=== PATIENT | male | born 1945 | race Caucasian/White ===

== ENCOUNTER 2018-07-11 21:36 | Inpatient (IN) | payer MEDICARE ==
--- NOTE | 2018-07-11 22:46 | ER Document Report ---
ED Fall - General Chief Complaint: Fall Stated Complaint: ALTERED MENTAL STATUS Time Seen by Provider: 07/11/18 22:17 Notes: 73-year-old male to the emergency department for evaluation of altered mental status. Patient reportedly had a fall at a assisted living facility. Seem to be more confused. Patient denies any pain right now. Patient states that before the fall he was a little dizzy but now he has no symptoms. Reportedly had a fever at the nursing facility as well. EMS states had a fever as well. Patient denies any abdominal pain. Denies any cough or shortness of breath. Has any headache, neck stiffness or other issues at this time. TRAVEL OUTSIDE OF THE [place] IN LAST 30 DAYS: No - HPI Occurred: Just prior to arrival Where: [facility] Context: Lost balance Associated symptoms: Became dizzy/fainted - Became dizzy but did not faint. denies: Lost consciousness, Seizure, Difficulty breathing Severity: Mild Pain Level: Denies - Related data Allergies/Adverse Reactions: No Known Drug Allergies Allergy (Verified 07/11/18 21:46) Past Medical History - General Information source: Patient - Social History Smoking Status: Unknown if Ever Smoked Frequency of alcohol use: None Drug Abuse: None Lives with: [facility] Family History: Reviewed & Not Pertinent - Past Medical History Cardiac Medical History: Reports: Hx Atrial Fibrillation, Hx Hypertension Review of Systems - Review of Systems Constitutional: Fever, Weakness. denies: Malaise EENT: denies: Eye pain, Difficulty swallowing, Throat swelling Cardiovascular: Dizziness, Lightheaded. denies: Chest pain, Palpitations, Heart racing Respiratory: denies: Cough, Short of breath, Wheezing Gastrointestinal: denies: Abdominal pain, Diarrhea, Nausea, Vomiting Genitourinary: denies: Burning, Dysuria, Discharge Musculoskeletal: denies: Back pain, Muscle pain, Leg swelling Skin: denies: Change in hair/nails, Dryness, Lesions, Lumps, Rash Hematologic/Lymphatic: denies: Anemia, Blood clots, Easy bleeding, Easy bruising Neurological/Psychological: Weakness. denies: Confusion, Dementia, Sensory change, Seizure, Lost consciousness, Headaches Physical Exam - Vital signs Vitals: Temp Pulse Resp BP Pulse Ox 99.9 F 101 H 22 H 150/112 H 98 07/11/18 21:46 07/11/18 21:46 07/11/18 21:46 07/11/18 21:46 07/11/18 21:46 Interpretation: Normal - General General appearance: Appears well, Alert - HEENT Head: Normocephalic, Atraumatic Eyes: Normal Pupils: PERRL - Respiratory Respiratory status: No respiratory distress Chest status: Nontender Breath sounds: Normal Chest palpation: Normal - Cardiovascular Rhythm: Regular Heart sounds: Normal auscultation Murmur: No - Abdominal Inspection: Normal Distension: No distension Bowel sounds: Normal Tenderness: Nontender Organomegaly: No organomegaly - Back Back: Normal, Nontender - Extremities General upper extremity: Normal inspection, Nontender, Normal color, Normal ROM, Normal temperature General lower extremity: Normal inspection, Nontender, Normal color, Normal ROM, Normal temperature, Normal weight bearing, Other - A little unsteady on his feet. 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 No: Pronator drift, Weakness, Hemiplegia Sensory: Normal - Psychological Associated symptoms: Normal affect, Normal mood - Skin Skin Temperature: Warm Skin Moisture: Dry Skin Color: Normal Course - Re-evaluation Re-evalutation: 07/11/18 23:39 Laboratory 07/11/18 07/11/18 07/11/18 23:00 23:00 23:00 PT 14.8 INR 1.10 APTT 34.3 VBG pH 7.46 H VBG pCO2 47.4 VBG HCO3 32.8 H VBG Base Excess 7.6 Urine Color YELLOW Urine Appearance CLOUDY Urine pH 5.0 Ur Specific [place] 1.019 Urine Protein 100 H Urine Glucose (UA) NEGATIVE Urine Ketones NEGATIVE Urine Blood LARGE H Urine Nitrite NEGATIVE Urine Bilirubin SMALL H Urine Urobilinogen 2.0 H Ur Leukocyte Esterase LARGE H Urine WBC (Auto) >182 Urine RBC (Auto) >182 Urine Bacteria (Auto) 1+ Urine WBC Clumps FEW Squamous Epi Cells Auto 3 U Non-Squamous Epis Auto 6 Urine Mucus (Auto) RARE Urine Ascorbic Acid NEGATIVE 07/12/18 02:58 Laboratory 07/11/18 07/11/18 07/11/18 23:00 23:00 23:00 WBC 22.6 H RBC 5.35 Hgb 15.5 Hct 46.0 MCV 86 MCH 29.0 MCHC 33.7 RDW 15.2 H Plt Count 291 Total Counted 100 Seg Neutrophils % Not Reportable Seg Neuts % (Manual) 87 H Band Neutrophils % 1 L Lymphocytes % Not Reportable Lymphocytes % (Manual) 6 L Monocytes % Not Reportable Monocytes % (Manual) 6 Eosinophils % Not Reportable Eosinophils % (Manual) 0 Basophils % Not Reportable Basophils % (Manual) 0 Absolute Neutrophils Not Reportable Abs Neuts (Manual) 19.9 H Absolute Lymphocytes Not Reportable Abs Lymphs (Manual) 1.4 Absolute Monocytes Not Reportable Abs Monocytes (Manual) 1.4 Absolute Eosinophils Not Reportable Absolute Eos (Manual) 0.0 Absolute Basophils Not Reportable Abs Basophils (Manual) 0.0 Platelet Comment ADEQUATE Polychromasia SLIGHT PT 14.8 INR 1.10 APTT 34.3 VBG pH VBG pCO2 VBG HCO3 VBG Base Excess Sodium 137.3 Potassium 2.9 L* Chloride 93 L Carbon Dioxide 32 H Anion Gap 12 BUN 19 Creatinine 1.54 H Est GFR ( Amer) 54 L Est GFR (Non-Af Amer) 45 L Glucose 120 H Lactic Acid Calcium 9.1 Total Bilirubin 1.3 Direct Bilirubin 0.4 Neonat Total Bilirubin Not Reportable Neonat Direct Bilirubin Not Reportable Neonat Indirect Bili Not Reportable AST 28 ALT 11 L Alkaline Phosphatase 103 Troponin I Total Protein 7.0 Albumin 4.3 Urine Color Urine Appearance Urine pH Ur Specific [place] Urine Protein Urine Glucose (UA) Urine Ketones Urine Blood Urine Nitrite Urine Bilirubin Urine Urobilinogen Ur Leukocyte Esterase Urine WBC (Auto) Urine RBC (Auto) Urine Bacteria (Auto) Urine WBC Clumps Squamous Epi Cells Auto U Non-Squamous Epis Auto Urine Mucus (Auto) Urine Ascorbic Acid 07/11/18 07/11/18 07/11/18 23:00 23:00 23:00 WBC RBC Hgb Hct MCV MCH MCHC RDW Plt Count Total Counted Seg Neutrophils % Seg Neuts % (Manual) Band Neutrophils % Lymphocytes % Lymphocytes % (Manual) Monocytes % Monocytes % (Manual) Eosinophils % Eosinophils % (Manual) Basophils % Basophils % (Manual) Absolute Neutrophils Abs Neuts (Manual) Absolute Lymphocytes Abs Lymphs (Manual) Absolute Monocytes Abs Monocytes (Manual) Absolute Eosinophils Absolute Eos (Manual) Absolute Basophils Abs Basophils (Manual) Platelet Comment Polychromasia PT INR APTT VBG pH 7.46 H VBG pCO2 47.4 VBG HCO3 32.8 H VBG Base Excess 7.6 Sodium Potassium Chloride Carbon Dioxide Anion Gap BUN Creatinine Est GFR ( Amer) Est GFR (Non-Af Amer) Glucose Lactic Acid Calcium Total Bilirubin Direct Bilirubin Neonat Total Bilirubin Neonat Direct Bilirubin Neonat Indirect Bili AST ALT Alkaline Phosphatase Troponin I 0.052 Total Protein Albumin Urine Color YELLOW Urine Appearance CLOUDY Urine pH 5.0 Ur Specific [place] 1.019 Urine Protein 100 H Urine Glucose (UA) NEGATIVE Urine Ketones NEGATIVE Urine Blood LARGE H Urine Nitrite NEGATIVE Urine Bilirubin SMALL H Urine Urobilinogen 2.0 H Ur Leukocyte Esterase LARGE H Urine WBC (Auto) >182 Urine RBC (Auto) >182 Urine Bacteria (Auto) 1+ Urine WBC Clumps FEW Squamous Epi Cells Auto 3 U Non-Squamous Epis Auto 6 Urine Mucus (Auto) RARE Urine Ascorbic Acid NEGATIVE 07/11/18 23:40 WBC RBC Hgb Hct MCV MCH MCHC RDW Plt Count Total Counted Seg Neutrophils % Seg Neuts % (Manual) Band Neutrophils % Lymphocytes % Lymphocytes % (Manual) Monocytes % Monocytes % (Manual) Eosinophils % Eosinophils % (Manual) Basophils % Basophils % (Manual) Absolute Neutrophils Abs Neuts (Manual) Absolute Lymphocytes Abs Lymphs (Manual) Absolute Monocytes Abs Monocytes (Manual) Absolute Eosinophils Absolute Eos (Manual) Absolute Basophils Abs Basophils (Manual) Platelet Comment Polychromasia PT INR APTT VBG pH VBG pCO2 VBG HCO3 VBG Base Excess Sodium Potassium Chloride Carbon Dioxide Anion Gap BUN Creatinine Est GFR ( Amer) Est GFR (Non-Af Amer) Glucose Lactic Acid 1.3 Calcium Total Bilirubin Direct Bilirubin Neonat Total Bilirubin Neonat Direct Bilirubin Neonat Indirect Bili AST ALT Alkaline Phosphatase Troponin I Total Protein Albumin Urine Color Urine Appearance Urine pH Ur Specific [place] Urine Protein Urine Glucose (UA) Urine Ketones Urine Blood Urine Nitrite Urine Bilirubin Urine Urobilinogen Ur Leukocyte Esterase Urine WBC (Auto) Urine RBC (Auto) Urine Bacteria (Auto) Urine WBC Clumps Squamous Epi Cells Auto U Non-Squamous Epis Auto Urine Mucus (Auto) Urine Ascorbic Acid Chest X-Ray 07/11/18 22:09 IMPRESSION: No evidence of acute cardiopulmonary disease. Abdomen/Pelvis CT 07/12/18 00:13 IMPRESSION: No acute findings. Cholelithiasis. Nonobstructing left-sided nephrolithiasis. TECHNICAL DOCUMENTATION: Quality ID # 436: Final reports with documentation of one or more dose reduction techniques (e.g., Automated exposure control, adjustment of the mA and/or kV according to patient size, use of iterative reconstruction technique) copyright 2011 [employer]- All Rights Reserved There is no evidence of obstructing kidney stones. Patient has a nonobstructing left stone in the kidney. But no hydroureter or hydronephrosis. Patient has received antibiotics. Does have a significantly elevated WBC count. We will try to get some more information from the nursing facility about his other underlying conditions. At this time will admit to the hospital to the [facility]. Consulted the hospitalist, Dr. Singh, he will admit at this time. - Vital Signs Vital signs: Temp Pulse Resp BP Pulse Ox 99.9 F 101 H 20 127/84 H 90 L 07/11/18 21:46 07/11/18 21:46 07/12/18 01:01 07/12/18 01:01 07/12/18 01:01 - Laboratory Result Diagrams: 07/11/18 23:00 07/11/18 23:00 Laboratory results interpreted by me: 07/11/18 07/11/18 07/11/18 23:00 23:00 23:00 WBC 22.6 H RDW 15.2 H Seg Neuts % (Manual) 87 H Band Neutrophils % 1 L Lymphocytes % (Manual) 6 L Abs Neuts (Manual) 19.9 H VBG pH 7.46 H VBG HCO3 32.8 H Potassium 2.9 L* Chloride 93 L Carbon Dioxide 32 H Creatinine 1.54 H Est GFR ( Amer) 54 L Est GFR (Non-Af Amer) 45 L Glucose 120 H ALT 11 L Urine Protein Urine Blood Urine Bilirubin Urine Urobilinogen Ur Leukocyte Esterase 07/11/18 23:00 WBC RDW Seg Neuts % (Manual) Band Neutrophils % Lymphocytes % (Manual) Abs Neuts (Manual) VBG pH VBG HCO3 Potassium Chloride Carbon Dioxide Creatinine Est GFR ( Amer) Est GFR (Non-Af Amer) Glucose ALT Urine Protein 100 H Urine Blood LARGE H Urine Bilirubin SMALL H Urine Urobilinogen 2.0 H Ur Leukocyte Esterase LARGE H - EKG Interpretation by Me EKG shows normal: abnormal: Intervals, QRS Complexes, ST-T Waves Rhythm: A.Fib Discharge - Discharge Clinical Impression: SIRS (systemic inflammatory response syndrome) Urinary tract infection Qualifiers: Urinary tract infection type: site unspecified Hematuria presence: without hematuria Qualified Code(s): N39.0 - Urinary tract infection, site not specified Leukocytosis Qualifiers: Leukocytosis type: unspecified Qualified Code(s): D72.829 - Elevated white blood cell count, unspecified Condition: Good Disposition: ADMITTED INPATIENT Admitting Provider: Hospitalist - Dr. Singh Unit Admitted: [facility]
--- NOTE | 2018-07-11 22:56 | RADIOLOGY REPORT (SQ) ---
XR CHEST 1 VIEW HISTORY: Fever. COMPARISON: None. FINDINGS: The heart size is normal. The lungs are clear. No pleural effusions or pneumothorax is seen. No acute bony findings. IMPRESSION: No evidence of acute cardiopulmonary disease.
[2018-07-11 23:20] LABS: VENOUS BLOOD BASE EXCESS 7.6 mmol/L; VENOUS BLOOD HCO3 32.8 mmol/L (20-32); VENOUS BLOOD PCO2 47.4 mmHg (35-63); VENOUS BLOOD PH 7.46 (7.30-7.42)
[2018-07-11 23:23] LABS: HEMOGLOBIN 15.5 g/dL (13.5-17.0); MEAN CORPUSCULAR HGB CONC 33.7 g/dL (32.0-36.0); MEAN CORPUSCULAR VOLUME 86 fl (80-97); PLATELET COUNT 291 10^3/uL (150-450); RED BLOOD COUNT 5.35 10^6/uL (4.35-5.55); RED CELL DISTRIBUTION WIDTH 15.2 % (11.5-14.0); WHITE BLOOD COUNT 22.6 10^3/uL (4.0-10.5)
[2018-07-11 23:32] LABS: PROTHROMBIN TIME 14.8 SEC (11.4-15.4)
[2018-07-11 23:33] LABS: PARTIAL THROMBOPLASTIN TIME 34.3 SEC (23.5-35.8)
[2018-07-11 23:35] LABS: APPEARANCE,URINE CLOUDY; BILIRUBIN,URINE SMALL (NEGATIVE); GLUCOSE, URINE NEGATIVE (NEGATIVE); KETONES,URINE NEGATIVE (NEGATIVE); LEUKOCYTE ESTERASE,URINE LARGE (NEGATIVE); NITRITE,URINE NEGATIVE (NEGATIVE); PROTEIN,URINE 100 mg/dL (NEGATIVE); URINE SPECIFIC GRAVITY 1.019
[2018-07-11 23:36] LABS: COLOR,URINE YELLOW
[2018-07-11] MEDS ORDERED: CEFTRIAXONE INJ 1000 MG VIAL IV ONE (23:40)
[2018-07-11 23:46] LABS: ALANINE AMINOTRANSFERASE 11 U/L (21-72); ALBUMIN 4.3 g/dL (3.5-5.0); ALKALINE PHOSPHATASE 103 U/L (38-126); ANION GAP 12 (5-19); ASPARTATE AMINO TRANSFERASE 28 U/L (17-59); BILIRUBIN,DIRECT 0.4 mg/dL (0.0-0.4); BILIRUBIN,TOTAL 1.3 mg/dL (0.2-1.3); BLOOD UREA NITROGEN 19 mg/dL (7-20); CALCIUM 9.1 mg/dL (8.4-10.2); CARBON DIOXIDE 32 mmol/L (22-30); CHLORIDE 93 mmol/L (98-107); GLUCOSE 120 mg/dL (75-110); SODIUM 137.3 mmol/L (137-145)
[2018-07-11 23:53] LABS: POTASSIUM 2.9 mmol/L (3.6-5.0)
[2018-07-12 00:01] LABS: ABSOLUTE LYMPHOCYTES# (MANUAL) 1.4 10^3/uL (0.5-4.7); ABSOLUTE MONOCYTES # (MANUAL) 1.4 10^3/uL (0.1-1.4); ABSOLUTE NEUTROPHILS# (MANUAL) 19.9 10^3/uL (1.7-8.2); BAND NEUTROPHILS % (MANUAL) 1 % (3-5); BASOPHILS % (MANUAL) 0 % (0-2); EOSINOPHILS % (MANUAL) 0 % (0-6); LYMPHOCYTES % (MANUAL) 6 % (13-45); MONOCYTES % (MANUAL) 6 % (3-13); PLATELET COMMENT ADEQUATE; SEGMENTED NEUTROPHILS % (MAN) 87 % (42-78); TOTAL CELLS COUNTED 100
[2018-07-12 00:02] LABS: POLYCHROMASIA SLIGHT
[2018-07-12] MEDS ORDERED: NORMAL SALINE 1000 ML 1,000 ML IV ONE (00:12)
[2018-07-12] MEDS ORDERED: ASPIRIN 81 MG TABLET, CHEWABLE PO ONE (00:48)
[2018-07-12] MEDS: POTASSI CL 20 MEQ/50 ML RIDER 20 MEQ/50 ML RTUPB IV SCH ×2 (01:05→02:49)
--- NOTE | 2018-07-12 02:45 | RADIOLOGY REPORT (SQ) ---
EXAM DESCRIPTION: CT ABDOMEN PELVIS WITH IV CONTRAST COMPLETED DATE/TME: 07/12/2018 00:13 CLINICAL HISTORY: 73 years, Male, uti, fever, flank pain, syncope, creat 1.54 COMPARISON: None. TECHNIQUE: Axial CT images of the abdomen and pelvis were obtained after the administration of IV contrast. Sagittal and coronal reformats were performed. [facility] [id number] Images stored on PACS. All CT scanners at this facility use dose modulation, iterative reconstruction, and/or weight based dosing when appropriate to reduce radiation dose to as low as reasonably achievable (ALARA). [facility]: Dose Right [facility]: CareDose [facility]: Dose Right [facility]: Teradose 4D [facility]: [employer] LIMITATIONS: None. FINDINGS: Lung bases are clear. The liver, pancreas, spleen, and adrenal glands are unremarkable. Cholelithiasis. There is reverse rotation of the right kidney with the hilum oriented laterally. There is no evidence of hydronephrosis or hydroureter bilaterally. There is a 9 mm nonobstructing stone along the mid pole of the left kidney. There is no intraperitoneal free air or fluid. There is no lymphadenopathy. There are atherosclerotic calcifications of the abdominal aorta. The stomach, small bowel, appendix, and colon appear unremarkable. The urinary bladder is decompressed by Grant catheter. The prostate gland appears unremarkable. There are changes of a left hip arthroplasty. IMPRESSION: No acute findings. Cholelithiasis. Nonobstructing left-sided nephrolithiasis. TECHNICAL DOCUMENTATION: Quality ID # 436: Final reports with documentation of one or more dose reduction techniques (e.g., Automated exposure control, adjustment of the mA and/or kV according to patient size, use of iterative reconstruction technique) copyright 2011 [employer]- All Rights Reserved
[2018-07-12] MEDS ORDERED: IPRATROPIUM/ALBUTEROL 0.5-2.5 MG/3 ML AMPUL NEB PRN (03:11)
[2018-07-12] MEDS ORDERED: MAG HYDROX/AL HYDROX/SIMETH SUSP 30 ML UDCUP PO PRN (03:11)
[2018-07-12] MEDS ORDERED: MAGNESIUM HYDROXIDE SUSP 30 ML UDCUP PO PRN (03:11)
[2018-07-12] MEDS ORDERED: POTASSI CL 20 MEQ/1/2NS 1L 20 MEQ/1,000 ML RTUINJ IV PRN (03:15)
[2018-07-12 03:30] LABS: ANION GAP 8 (5-19); BLOOD UREA NITROGEN 19 mg/dL (7-20); CARBON DIOXIDE 34 mmol/L (22-30); CHLORIDE 94 mmol/L (98-107); GLUCOSE 100 mg/dL (75-110); POTASSIUM 3.5 mmol/L (3.6-5.0); SODIUM 136.3 mmol/L (137-145)
--- NOTE | 2018-07-12 06:36 | PDOC H&P ---
History of Present Illness Admission Date/PCP: 07/12/18 03:25 LUISITO MAK MD Patient complains of: Generalized weakness and fever History of Present Illness: CHAI GOLD is a 73 year old male with a past medical history of congestive heart failure, status post coronary artery bypass graft, A. fib not on anticoagulation, hypertension, diabetes, COPD, depression and PTSD. He is a residential resident who was noted by staff to have generalized weakness and fever brought to the emergency room for evaluation where he is found to have altered mental status, leukocytosis, acute renal failure, hypokalemia and a urinary tract infection without obstruction. He started on IV fluids, potassium repletion empiric antibiotics and referred to the hospitalist for admission. The patient is a poor historian with acute encephalopathy unable to provide significant history. His medication reconciliation is pending from nursing facility. Past Medical History Cardiac Medical History: Reports: Atrial Fibrillation, Congestive Heart Failure, Hypertension Pulmonary Medical History: Reports: Chronic Obstructive Pulmonary Disease (COPD) Endocrine Medical History: Reports: Diabetes Mellitus Type 2 Psychiatric Medical History: Reports: Depression Denies: Tobacco Dependency Past Surgical History Past Surgical History: Reports: Coronary Artery Bypass Graft Social History Information Source: Patient, H Records, Outside Facility Records Lives with: [facility] Smoking Status: Unknown if Ever Smoked Frequency of Alcohol Use: None Drugs: None - Advance Directive Resuscitation Status: Full Code Family History Family History: Hypertension Parental Family History Reviewed: Yes Children Family History Reviewed: Yes Sibling(s) Family History Reviewed.: Yes Medication/Allergy Allergies/Adverse Reactions: No Known Drug Allergies Allergy (Verified 07/11/18 21:46) Review of Systems ROS unobtainable: Due to mental status - Acute encephalopathy Physical Exam Vital Signs: Temp Pulse Resp BP Pulse Ox 99.4 F 118 H 18 136/74 H 96 07/12/18 05:34 07/12/18 05:34 07/12/18 05:34 07/12/18 05:34 07/12/18 05:34 Intake & Output 07/10/18 07/11/18 07/12/18 11:59 11:59 11:59 Intake Total 1067 Balance 1067 Weight 121.8 kg General appearance: PRESENT: cooperative, disheveled, mild distress, morbidly ob pia, well-developed, well-nourished Head exam: PRESENT: atraumatic, normocephalic Eye exam: PRESENT: conjunctiva pink, EOMI, PERRLA. ABSENT: scleral icterus Ear exam: PRESENT: normal external ear exam Mouth exam: PRESENT: moist, tongue midline Neck exam: ABSENT: carotid bruit, JVD, lymphadenopathy, thyromegaly Respiratory exam: PRESENT: clear to auscultation jacob. ABSENT: rales, rhonchi, wheezes Cardiovascular exam: PRESENT: irregular rhythm, +S1, +S2, tachycardia Pulses: PRESENT: normal dorsalis pedis pul Vascular exam: PRESENT: normal capillary refill GI/Abdominal exam: PRESENT: normal bowel sounds, soft. ABSENT: distended, guarding, mass, organolmegaly, rebound, tenderness Rectal exam: PRESENT: deferred Extremities exam: PRESENT: full ROM. ABSENT: calf tenderness, clubbing, pedal edema Neurological exam: PRESENT: alert, altered, awake, oriented to person, CN II-XII grossly intact Psychiatric exam: PRESENT: appropriate affect, normal mood. ABSENT: homicidal ideation, suicidal ideation Skin exam: PRESENT: other - Seborrheic dermatitis Results Laboratory Results: 07/11/18 23:00 07/12/18 02:51 07/11/18 07/11/18 07/11/18 23:00 23:00 23:00 WBC 22.6 H RBC 5.35 Hgb 15.5 Hct 46.0 MCV 86 MCH 29.0 MCHC 33.7 RDW 15.2 H Plt Count 291 Seg Neutrophils % Not Reportable Lymphocytes % Not Reportable Monocytes % Not Reportable Eosinophils % Not Reportable Basophils % Not Reportable Absolute Neutrophils Not Reportable Absolute Lymphocytes Not Reportable Absolute Monocytes Not Reportable Absolute Eosinophils Not Reportable Absolute Basophils Not Reportable VBG pH 7.46 H VBG pCO2 47.4 VBG HCO3 32.8 H VBG Base Excess 7.6 Sodium 137.3 Potassium 2.9 L* Chloride 93 L Carbon Dioxide 32 H Anion Gap 12 BUN 19 Creatinine 1.54 H Est GFR ( Amer) 54 L Est GFR (Non-Af Amer) 45 L Glucose 120 H Lactic Acid Calcium 9.1 Magnesium Total Bilirubin 1.3 AST 28 ALT 11 L Alkaline Phosphatase 103 Total Protein 7.0 Albumin 4.3 Urine Color Urine Appearance Urine pH Ur Specific [place] Urine Protein Urine Glucose (UA) Urine Ketones Urine Blood Urine Nitrite Ur Leukocyte Esterase Urine WBC (Auto) Urine RBC (Auto) 07/11/18 07/11/18 07/12/18 23:00 23:40 02:51 WBC RBC Hgb Hct MCV MCH MCHC RDW Plt Count Seg Neutrophils % Lymphocytes % Monocytes % Eosinophils % Basophils % Absolute Neutrophils Absolute Lymphocytes Absolute Monocytes Absolute Eosinophils Absolute Basophils VBG pH VBG pCO2 VBG HCO3 VBG Base Excess Sodium Potassium Chloride Carbon Dioxide Anion Gap BUN Creatinine Est GFR ( Amer) Est GFR (Non-Af Amer) Glucose Lactic Acid 1.3 Calcium Magnesium 2.0 Total Bilirubin AST ALT Alkaline Phosphatase Total Protein Albumin Urine Color YELLOW Urine Appearance CLOUDY Urine pH 5.0 Ur Specific [place] 1.019 Urine Protein 100 H Urine Glucose (UA) NEGATIVE Urine Ketones NEGATIVE Urine Blood LARGE H Urine Nitrite NEGATIVE Ur Leukocyte Esterase LARGE H Urine WBC (Auto) >182 Urine RBC (Auto) >182 07/12/18 02:51 WBC RBC Hgb Hct MCV MCH MCHC RDW Plt Count Seg Neutrophils % Lymphocytes % Monocytes % Eosinophils % Basophils % Absolute Neutrophils Absolute Lymphocytes Absolute Monocytes Absolute Eosinophils Absolute Basophils VBG pH VBG pCO2 VBG HCO3 VBG Base Excess Sodium 136.3 L Potassium 3.5 L Chloride 94 L Carbon Dioxide 34 H Anion Gap 8 BUN 19 Creatinine 1.50 H Est GFR ( Amer) 56 L Est GFR (Non-Af Amer) 46 L Glucose 100 Lactic Acid Calcium 8.0 L Magnesium Total Bilirubin AST ALT Alkaline Phosphatase Total Protein Albumin Urine Color Urine Appearance Urine pH Ur Specific [place] Urine Protein Urine Glucose (UA) Urine Ketones Urine Blood Urine Nitrite Ur Leukocyte Esterase Urine WBC (Auto) Urine RBC (Auto) 07/11/18 07/12/18 07/12/18 23:00 02:51 02:51 Troponin I 0.052 0.038 NT-Pro-B Natriuret Pep 3720 H Impressions: Chest X-Ray 07/11/18 22:09 IMPRESSION: No evidence of acute cardiopulmonary disease. Abdomen/Pelvis CT 07/12/18 00:13 IMPRESSION: No acute findings. Cholelithiasis. Nonobstructing left-sided nephrolithiasis. TECHNICAL DOCUMENTATION: Quality ID # 436: Final reports with documentation of one or more dose reduction techniques (e.g., Automated exposure control, adjustment of the mA and/or kV according to patient size, use of iterative reconstruction technique) copyright 2011 [employer]- All Rights Reserved Assessment & Plan - Diagnosis (1) Urinary tract infection Qualifiers: Urinary tract infection type: site unspecified Hematuria presence: without hematuria Qualified Code(s): N39.0 - Urinary tract infection, site not specified Is this a current diagnosis for this admission?: Yes Plan: History of BPH with urinary tract infection, denies nephrolithiasis. Empiric antibiotic ordered, follow-up CBC blood and urine culture (2) Acute encephalopathy Is this a current diagnosis for this admission?: Yes Plan: Secondary to acute illness, reevaluate with treatment of a urinary tract infection. Supportive care (3) Diabetes Is this a current diagnosis for this admission?: Yes Plan: Outpatient medication reconciliation pending, Humalog sliding scale ordered. Follow-up Accu-Cheks q. before meals (4) Atrial fibrillation Is this a current diagnosis for this admission?: Yes Plan: Rate controlled follow-up outpatient medication reconciliation (5) Seborrheic dermatitis Is this a current diagnosis for this admission?: Yes Plan: Ketoconazole (6) Hypokalemia Is this a current diagnosis for this admission?: Yes Plan: Follow-up magnesium and repeat potassium level. Potassium repletion as needed (7) SIRS (systemic inflammatory response syndrome) Is this a current diagnosis for this admission?: Yes Plan: Secondary to UTI. IV fluid challenge, reevaluate
[2018-07-12] MEDS ORDERED: GLUCAGON,HUMAN RECOMB 1 MG INJ IM PRN (06:38)
[2018-07-12] MEDS ORDERED: DEXTROSE 50%-WATER 25 GM/50 ML DISP.SYRIN IV PRN ×2 (06:38)
[2018-07-12] MEDS ORDERED: DEXTROSE 40% GEL 15 GM TUBE PO PRN ×2 (06:38)
[2018-07-12] MEDS: INSULIN LISPRO 100 UNIT/ML 3 ML VIAL SUBCUT SCH ×3 (07:42→15:40)
[2018-07-12 07:58] LABS: HEMATOCRIT 46.2 % (37.9-51.0); HEMOGLOBIN 15.8 g/dL (13.5-17.0); MEAN CORPUSCULAR HEMOGLOBIN 29.1 pg (27.0-33.4); MEAN CORPUSCULAR HGB CONC 34.2 g/dL (32.0-36.0); MEAN CORPUSCULAR VOLUME 85 fl (80-97); RED BLOOD COUNT 5.43 10^6/uL (4.35-5.55); RED CELL DISTRIBUTION WIDTH 15.3 % (11.5-14.0); WHITE BLOOD COUNT 19.4 10^3/uL (4.0-10.5)
[2018-07-12 08:02] LABS: PLATELET COUNT 75 10^3/uL (150-450)
[2018-07-12 08:09] LABS: ABSOLUTE LYMPHOCYTES# (MANUAL) 0.4 10^3/uL (0.5-4.7); ABSOLUTE MONOCYTES # (MANUAL) 1.6 10^3/uL (0.1-1.4); ABSOLUTE NEUTROPHILS# (MANUAL) 17.5 10^3/uL (1.7-8.2); BAND NEUTROPHILS % (MANUAL) 1 % (3-5); BASOPHILS % (MANUAL) 0 % (0-2); EOSINOPHILS % (MANUAL) 0 % (0-6); LYMPHOCYTES % (MANUAL) 1 % (13-45); MONOCYTES % (MANUAL) 8 % (3-13); SEGMENTED NEUTROPHILS % (MAN) 89 % (42-78); TOTAL CELLS COUNTED 100
[2018-07-12 08:14] LABS: ANISOCYTOSIS SLIGHT; OVALOCYTES SLIGHT; PLATELET COMMENT DECREASED; POIKILOCYTOSIS SLIGHT
[2018-07-12] MEDS ORDERED: ARIPIPRAZOLE 2 MG TABLET PO SCH ×3 (10:00→22:00)
[2018-07-12] MEDS ORDERED: KETOCONAZOLE 2% SHAMPOO 120 ML BOTTLE TP SCH (10:00)
--- NOTE | 2018-07-12 10:10 | EKG REPORT ---
SEVERITY:- ABNORMAL ECG - ATRIAL FIBRILLATION, V-RATE 64-107 BORDERLINE R WAVE PROGRESSION, ANTERIOR LEADS PROLONGED QT INTERVAL : Confirmed by: Pam Patel 12-Jul-2018 10:09:34
[2018-07-12] MEDS: HEPARIN SOD (PORCINE) 5,000 UNIT/ML 1 ML SYRINGE SUBCUT SCH ×3 (10:57→21:05)
[2018-07-12] MEDS: DOCUSATE SODIUM 100 MG CAPSULE PO SCH (11:01)
[2018-07-12] MEDS: CLONAZEPAM 1 MG TABLET PO SCH (11:01)
[2018-07-12] MEDS: ARIPIPRAZOLE 2 MG TABLET PO SCH (11:02)
[2018-07-12] MEDS: METOPROLOL TARTRATE 25 MG TABLET PO SCH ×2 (11:02→21:12)
--- NOTE | 2018-07-12 17:19 | PDOC PROGRESS REPORT ---
Subjective Progress Note for:: 07/12/18 Subjective:: This is 73 years old male patient with past medical history of CHF, coronary artery disease status post coronary bypass graft, A. fib, hypertension, COPD, depression and diabetes mellitus transferred from long term to the emergency department for evaluation of weakness and fever. His urinalysis shows large leukocyte esterase and pyuria. And his white cell count is markedly elevated which is 22,000. He has also creatinine of 1.50 and BNP of 3700. His BNP elevated patient does not have signs and symptoms of congestive heart failure. When I see him this morning patient is lying on his side he is awake alert and has tremor at rest and his face covered with seborrheic dermatitis. I suspect Parkinson's disease in this patient. Reason For Visit: UTI SEPSIS AMS Physical Exam Vital Signs: Temp Pulse Resp BP Pulse Ox 98.7 F 89 20 146/79 H 100 07/12/18 15:23 07/12/18 15:23 07/12/18 15:23 07/12/18 15:23 07/12/18 15:23 Intake & Output 07/11/18 07/12/18 07/13/18 06:59 06:59 06:59 Intake Total 1067 384 Balance 1067 384 Weight 121.8 kg General appearance: PRESENT: no acute distress Eye exam: PRESENT: conjunctiva pink Neck exam: ABSENT: carotid bruit, JVD, lymphadenopathy, thyromegaly Respiratory exam: PRESENT: clear to auscultation jacob. ABSENT: rales, rhonchi, wheezes GI/Abdominal exam: PRESENT: normal bowel sounds, soft. ABSENT: distended, guarding, mass, organolmegaly, rebound, tenderness Neurological exam: PRESENT: alert, awake Results Laboratory Results: 07/12/18 05:59 07/12/18 02:51 07/11/18 07/11/18 07/11/18 23:00 23:00 23:00 WBC 22.6 H RBC 5.35 Hgb 15.5 Hct 46.0 MCV 86 MCH 29.0 MCHC 33.7 RDW 15.2 H Plt Count 291 Seg Neutrophils % Not Reportable Lymphocytes % Not Reportable Monocytes % Not Reportable Eosinophils % Not Reportable Basophils % Not Reportable Absolute Neutrophils Not Reportable Absolute Lymphocytes Not Reportable Absolute Monocytes Not Reportable Absolute Eosinophils Not Reportable Absolute Basophils Not Reportable VBG pH 7.46 H VBG pCO2 47.4 VBG HCO3 32.8 H VBG Base Excess 7.6 Sodium 137.3 Potassium 2.9 L* Chloride 93 L Carbon Dioxide 32 H Anion Gap 12 BUN 19 Creatinine 1.54 H Est GFR ( Amer) 54 L Est GFR (Non-Af Amer) 45 L Glucose 120 H Lactic Acid Calcium 9.1 Magnesium Total Bilirubin 1.3 AST 28 ALT 11 L Alkaline Phosphatase 103 Total Protein 7.0 Albumin 4.3 Urine Color Urine Appearance Urine pH Ur Specific [place] Urine Protein Urine Glucose (UA) Urine Ketones Urine Blood Urine Nitrite Ur Leukocyte Esterase Urine WBC (Auto) Urine RBC (Auto) 07/11/18 07/11/18 07/12/18 23:00 23:40 02:51 WBC RBC Hgb Hct MCV MCH MCHC RDW Plt Count Seg Neutrophils % Lymphocytes % Monocytes % Eosinophils % Basophils % Absolute Neutrophils Absolute Lymphocytes Absolute Monocytes Absolute Eosinophils Absolute Basophils VBG pH VBG pCO2 VBG HCO3 VBG Base Excess Sodium Potassium Chloride Carbon Dioxide Anion Gap BUN Creatinine Est GFR ( Amer) Est GFR (Non-Af Amer) Glucose Lactic Acid 1.3 Calcium Magnesium 2.0 Total Bilirubin AST ALT Alkaline Phosphatase Total Protein Albumin Urine Color YELLOW Urine Appearance CLOUDY Urine pH 5.0 Ur Specific [place] 1.019 Urine Protein 100 H Urine Glucose (UA) NEGATIVE Urine Ketones NEGATIVE Urine Blood LARGE H Urine Nitrite NEGATIVE Ur Leukocyte Esterase LARGE H Urine WBC (Auto) >182 Urine RBC (Auto) >182 07/12/18 07/12/18 02:51 05:59 WBC 19.4 H RBC 5.43 Hgb 15.8 Hct 46.2 MCV 85 MCH 29.1 MCHC 34.2 RDW 15.3 H Plt Count 75 L Seg Neutrophils % Not Reportable Lymphocytes % Not Reportable Monocytes % Not Reportable Eosinophils % Not Reportable Basophils % Not Reportable Absolute Neutrophils Not Reportable Absolute Lymphocytes Not Reportable Absolute Monocytes Not Reportable Absolute Eosinophils Not Reportable Absolute Basophils Not Reportable VBG pH VBG pCO2 VBG HCO3 VBG Base Excess Sodium 136.3 L Potassium 3.5 L Chloride 94 L Carbon Dioxide 34 H Anion Gap 8 BUN 19 Creatinine 1.50 H Est GFR ( Amer) 56 L Est GFR (Non-Af Amer) 46 L Glucose 100 Lactic Acid Calcium 8.0 L Magnesium Total Bilirubin AST ALT Alkaline Phosphatase Total Protein Albumin Urine Color Urine Appearance Urine pH Ur Specific [place] Urine Protein Urine Glucose (UA) Urine Ketones Urine Blood Urine Nitrite Ur Leukocyte Esterase Urine WBC (Auto) Urine RBC (Auto) 07/11/18 07/12/18 07/12/18 23:00 02:51 02:51 Troponin I 0.052 0.038 NT-Pro-B Natriuret Pep 3720 H Impressions: Chest X-Ray 07/11/18 22:09 IMPRESSION: No evidence of acute cardiopulmonary disease. Abdomen/Pelvis CT 07/12/18 00:13 IMPRESSION: No acute findings. Cholelithiasis. Nonobstructing left-sided nephrolithiasis. TECHNICAL DOCUMENTATION: Quality ID # 436: Final reports with documentation of one or more dose reduction techniques (e.g., Automated exposure control, adjustment of the mA and/or kV according to patient size, use of iterative reconstruction technique) copyright 2011 [employer]- All Rights Reserved Assessment & Plan - Diagnosis (1) Sepsis Is this a current diagnosis for this admission?: Yes Plan: Fever,JOSH,Leukocytosis. Continue antibiotics (2) Leukocytosis Is this a current diagnosis for this admission?: Yes Plan: Trending down (3) Acute encephalopathy Is this a current diagnosis for this admission?: Yes Plan: Due to UTI (4) Acute kidney injury Is this a current diagnosis for this admission?: Yes Plan: We will continue cautious hydration since patient has history of CHF. (5) Hypokalemia Is this a current diagnosis for this admission?: Yes Plan: Resolved (6) A-fib Qualifiers: Atrial fibrillation type: chronic Qualified Code(s): I48.2 - Chronic atrial fibrillation Is this a current diagnosis for this admission?: Yes Plan: Rate controlled (7) Type 2 diabetes mellitus Is this a current diagnosis for this admission?: Yes Plan: Continue current regimen (8) COPD (chronic obstructive pulmonary disease) Is this a current diagnosis for this admission?: Yes Plan: Continue bronchodilators as needed. (9) Systolic CHF Is this a current diagnosis for this admission?: Yes Plan: Compensated
[2018-07-12] MEDS: CEFTRIAXONE 1 GM/D5W RTU 1 GM/50 ML RTUPB IV SCH (21:12)
[2018-07-13 02:18] LABS: ANION GAP 10 (5-19); BLOOD UREA NITROGEN 16 mg/dL (7-20); CALCIUM 8.6 mg/dL (8.4-10.2); CARBON DIOXIDE 32 mmol/L (22-30); CHLORIDE 93 mmol/L (98-107); GLUCOSE 142 mg/dL (75-110); PHOSPHORUS 2.9 mg/dL (2.5-4.5); SODIUM 134.5 mmol/L (137-145)
[2018-07-13 02:46] LABS: HEMATOCRIT 42.6 % (37.9-51.0); HEMOGLOBIN 14.3 g/dL (13.5-17.0); MEAN CORPUSCULAR HEMOGLOBIN 28.7 pg (27.0-33.4); MEAN CORPUSCULAR HGB CONC 33.5 g/dL (32.0-36.0); MEAN CORPUSCULAR VOLUME 86 fl (80-97); RED BLOOD COUNT 4.97 10^6/uL (4.35-5.55); RED CELL DISTRIBUTION WIDTH 15.1 % (11.5-14.0); WHITE BLOOD COUNT 15.1 10^3/uL (4.0-10.5)
[2018-07-13 03:19] LABS: PLATELET COUNT 220 10^3/uL (150-450)
[2018-07-13 03:22] LABS: ABSOLUTE LYMPHOCYTES# (MANUAL) 1.1 10^3/uL (0.5-4.7); ABSOLUTE MONOCYTES # (MANUAL) 1.1 10^3/uL (0.1-1.4); BASOPHILS % (MANUAL) 0 % (0-2); EOSINOPHILS % (MANUAL) 0 % (0-6); LYMPHOCYTES % (MANUAL) 7 % (13-45); MONOCYTES % (MANUAL) 7 % (3-13); SEGMENTED NEUTROPHILS % (MAN) 86 % (42-78); TOTAL CELLS COUNTED 100
[2018-07-13 03:23] LABS: ANISOCYTOSIS SLIGHT; PLATELET COMMENT ADEQUATE; ROULEAUX SLIGHT
[2018-07-13] MEDS: POTASSIUM CHLORIDE 20 MEQ/50 ML RTU IV SCH ×2 (03:44→07:20)
[2018-07-13] MEDS: HEPARIN SOD (PORCINE) 5,000 UNIT/ML 1 ML SYRINGE SUBCUT SCH ×3 (07:18→22:09)
[2018-07-13] MEDS ORDERED: POTASSIUM CHLORIDE 10 MEQ CAPSULE.ER PO ONE (07:30)
[2018-07-13] MEDS: MAGNESIUM SULFATE/D5W 1 GM/100 ML RTUPB IV SCH (07:55)
[2018-07-13] MEDS ORDERED: HYDRALAZINE HCL INJ/PF 20 MG/1 ML SDV ONE (08:02)
[2018-07-13] MEDS: INSULIN LISPRO 100 UNIT/ML 3 ML VIAL SUBCUT SCH ×3 (08:10→16:38)
[2018-07-13] MEDS: CLONAZEPAM 1 MG TABLET PO SCH (09:07)
[2018-07-13] MEDS: ARIPIPRAZOLE 2 MG TABLET PO SCH (09:08)
[2018-07-13] MEDS: METOPROLOL TARTRATE 25 MG TABLET PO SCH ×2 (09:08→22:11)
[2018-07-13] MEDS: DOCUSATE SODIUM 100 MG CAPSULE PO SCH (09:08)
[2018-07-13] MEDS: ACETAMINOPHEN 325 MG TABLET PO PRN ×2 (09:08→18:13)
[2018-07-13] MEDS: MAGNESIUM SULFATE 1 GM/D5W 100 ML IV SCH ×2 (09:09→10:48)
[2018-07-13] MEDS: KETOCONAZOLE 2% SHAMPOO 120 ML BOTTLE TP PRN (09:09)
[2018-07-13] MEDS ORDERED: (PENDING PHARMACY ID) (Acetaminophen [Tylenol Extra Strength 500 Mg Tablet] 1 TAB) PO PRN (10:47)
[2018-07-13] MEDS ORDERED: GUAIFENESIN/D-METHORPHAN (200-20 MG) SYRUP 10 ML PO PRN (10:47)
[2018-07-13] MEDS ORDERED: MOMETASONE FUROATE TP PRN (10:47)
[2018-07-13] MEDS ORDERED: NEOMY/BACITRAC ZN/POLY OINT 15 GM TP PRN (10:47)
[2018-07-13] MEDS ORDERED: GUAIFENESIN SYRP 200 MG/10 ML UDC PO PRN (10:47)
[2018-07-13] MEDS: TORSEMIDE 20 MG TABLET PO SCH (12:00)
[2018-07-13] MEDS: LISINOPRIL 10 MG TABLET PO SCH (12:01)
[2018-07-13] MEDS: ISOSORBIDE MONONITRATE 30 MG TAB.ER.24H PO SCH (12:01)
[2018-07-13] MEDS ORDERED: MOMETASONE FUROATE TOP PRN (12:29)
[2018-07-13] MEDS ORDERED: (PENDING PHARMACY ID) (Clonazepam [Klonopin] 0.25 MG) PO SCH (13:00)
[2018-07-13] MEDS: BUPROPION HCL 100 MG TABLET PO SCH ×2 (13:32→22:11)
--- NOTE | 2018-07-13 17:24 | PDOC PROGRESS REPORT ---
Subjective Progress Note for:: 07/13/18 Subjective:: I seen patient resting in bed. No new complaint. And his white cell count is steadily trending down. Reason For Visit: UTI SEPSIS AMS Physical Exam Vital Signs: Temp Pulse Resp BP Pulse Ox 98.1 F 77 20 149/101 H 100 07/13/18 15:35 07/13/18 15:35 07/13/18 15:35 07/13/18 15:35 07/13/18 15:35 Intake & Output 07/12/18 07/13/18 07/14/18 06:59 06:59 06:59 Intake Total 1067 1680 250 Output Total 2500 Balance 1067 -820 250 Weight 121.8 kg 122.2 kg General appearance: PRESENT: no acute distress Head exam: PRESENT: atraumatic Eye exam: PRESENT: conjunctiva pink Mouth exam: PRESENT: moist Neck exam: PRESENT: carotid bruit Respiratory exam: PRESENT: clear to auscultation jacob. ABSENT: rales, rhonchi, wheezes Cardiovascular exam: PRESENT: RRR. ABSENT: diastolic murmur, rubs, systolic murmur GI/Abdominal exam: PRESENT: normal bowel sounds, soft. ABSENT: distended, guarding, mass, organolmegaly, rebound, tenderness Neurological exam: PRESENT: alert, awake Results Laboratory Results: 07/13/18 02:29 07/13/18 01:40 07/13/18 07/13/18 07/13/18 01:40 01:40 02:29 WBC Cancelled 15.1 H RBC Cancelled 4.97 Hgb Cancelled 14.3 Hct Cancelled 42.6 MCV Cancelled 86 MCH Cancelled 28.7 MCHC Cancelled 33.5 RDW Cancelled 15.1 H Plt Count Cancelled 220 D Seg Neutrophils % Cancelled Not Reportable Lymphocytes % Cancelled Not Reportable Monocytes % Cancelled Not Reportable Eosinophils % Cancelled Not Reportable Basophils % Cancelled Not Reportable Absolute Neutrophils Cancelled Not Reportable Absolute Lymphocytes Cancelled Not Reportable Absolute Monocytes Cancelled Not Reportable Absolute Eosinophils Cancelled Not Reportable Absolute Basophils Cancelled Not Reportable Sodium 134.5 L Potassium 3.0 L* Chloride 93 L Carbon Dioxide 32 H Anion Gap 10 BUN 16 Creatinine 1.26 H Est GFR ( Amer) > 60 Est GFR (Non-Af Amer) 56 L Glucose 142 H Calcium 8.6 Phosphorus 2.9 Magnesium 2.1 07/11/18 23:00 Clean Catch Midstream Urine Culture - Final Escherichia Coli 07/11/18 07/12/18 07/12/18 23:00 02:51 02:51 Troponin I 0.052 0.038 NT-Pro-B Natriuret Pep 3720 H Impressions: Chest X-Ray 07/11/18 22:09 IMPRESSION: No evidence of acute cardiopulmonary disease. Abdomen/Pelvis CT 07/12/18 00:13 IMPRESSION: No acute findings. Cholelithiasis. Nonobstructing left-sided nephrolithiasis. TECHNICAL DOCUMENTATION: Quality ID # 436: Final reports with documentation of one or more dose reduction techniques (e.g., Automated exposure control, adjustment of the mA and/or kV according to patient size, use of iterative reconstruction technique) copyright 2011 [employer]- All Rights Reserved Assessment & Plan - Diagnosis (1) Sepsis Is this a current diagnosis for this admission?: Yes Plan: Fever,JOSH,Leukocytosis. Continue antibiotics (2) Leukocytosis Is this a current diagnosis for this admission?: Yes Plan: Trending down (3) Acute encephalopathy Is this a current diagnosis for this admission?: Yes Plan: Due to UTI (4) Acute kidney injury Is this a current diagnosis for this admission?: Yes Plan: We will continue cautious hydration since patient has history of CHF. (5) Hypokalemia Is this a current diagnosis for this admission?: Yes Plan: Resolved (6) A-fib Qualifiers: Atrial fibrillation type: chronic Qualified Code(s): I48.2 - Chronic atrial fibrillation Is this a current diagnosis for this admission?: Yes Plan: Rate controlled (7) Type 2 diabetes mellitus Is this a current diagnosis for this admission?: Yes Plan: Continue current regimen (8) COPD (chronic obstructive pulmonary disease) Is this a current diagnosis for this admission?: Yes Plan: Continue bronchodilators as needed. (9) Systolic CHF Is this a current diagnosis for this admission?: Yes Plan: Compensated
[2018-07-13] MEDS: NORMAL SALINE 1000 ML 1,000 ML IV PRN (18:12)
[2018-07-13] MEDS ORDERED: (PENDING PHARMACY ID) (Guaifenesin [Mucinex] 1,200 MG) PO SCH (22:00)
[2018-07-13] MEDS: ATORVASTATIN CALCIUM 40 MG TABLET PO SCH (22:11)
[2018-07-13] MEDS: GUAIFENESIN 600 MG TABLET.SA PO SCH (22:11)
[2018-07-13] MEDS: CEFTRIAXONE 1 GM/D5W RTU 1 GM/50 ML RTUPB IV SCH (22:12)
[2018-07-13] MEDS: BUDESONIDE/FORMOTEROL 160-4.5 MCG 60 PUFF/6 GM MDI IH SCH (22:12)
[2018-07-14] MEDS: CLONAZEPAM 1 MG TABLET PO PRN ×2 (01:09→15:00)
[2018-07-14] MEDS: TRAMADOL HCL 50 MG TABLET PO PRN ×2 (01:52→21:32)
[2018-07-14 05:54] LABS: ABSOLUTE BASOPHILS # (AUTO) 0.1 10^3/uL (0.0-0.2); ABSOLUTE EOSINOPHILS # (AUTO) 0.2 10^3/uL (0.0-0.6); ABSOLUTE LYMPHOCYTES (AUTO) 0.5 10^3/uL (0.5-4.7); ABSOLUTE MONOCYTES (AUTO) 0.8 10^3/uL (0.1-1.4); ABSOLUTE NEUT (AUTO) 5.2 10^3/uL (1.7-8.2); BASOPHILS % (AUTO) 1.2 % (0-2); EOSINOPHILS % (AUTO) 2.5 % (0-6); HEMATOCRIT 39.5 % (37.9-51.0); HEMOGLOBIN 13.6 g/dL (13.5-17.0); LYMPHOCYTES % (AUTO) 7.5 % (13-45); MEAN CORPUSCULAR HEMOGLOBIN 29.4 pg (27.0-33.4); MEAN CORPUSCULAR HGB CONC 34.5 g/dL (32.0-36.0); MEAN CORPUSCULAR VOLUME 85 fl (80-97); MONOCYTES % (AUTO) 11.8 % (3-13); PLATELET COUNT 195 10^3/uL (150-450); RED BLOOD COUNT 4.63 10^6/uL (4.35-5.55); RED CELL DISTRIBUTION WIDTH 15.2 % (11.5-14.0); TOTAL CELLS COUNTED % (AUTO) 100 %; WHITE BLOOD COUNT 6.8 10^3/uL (4.0-10.5)
[2018-07-14] MEDS: NORMAL SALINE 1000 ML 1,000 ML IV PRN (06:12)
[2018-07-14] MEDS: HEPARIN SOD (PORCINE) 5,000 UNIT/ML 1 ML SYRINGE SUBCUT SCH ×3 (06:12→21:30)
[2018-07-14] MEDS: BUPROPION HCL 100 MG TABLET PO SCH ×3 (06:12→21:30)
[2018-07-14] MEDS: LANSOPRAZOLE 15 MG TAB.RAP.DR PO SCH (06:12)
[2018-07-14] MEDS: INSULIN LISPRO 100 UNIT/ML 3 ML VIAL SUBCUT SCH ×3 (08:02→16:46)
[2018-07-14] MEDS: FINASTERIDE 5 MG TABLET PO SCH (09:20)
[2018-07-14] MEDS: METOPROLOL TARTRATE 25 MG TABLET PO SCH ×2 (09:20→21:30)
[2018-07-14] MEDS: GUAIFENESIN 600 MG TABLET.SA PO SCH ×2 (09:20→21:30)
[2018-07-14] MEDS: ISOSORBIDE MONONITRATE 30 MG TAB.ER.24H PO SCH (09:21)
[2018-07-14] MEDS: POTASSIUM CHLORIDE 10 MEQ CAPSULE.ER PO SCH (09:21)
[2018-07-14] MEDS: DOCUSATE SODIUM 100 MG CAPSULE PO SCH (09:21)
[2018-07-14] MEDS: FERROUS SULFATE 325 MG TABLET PO SCH (09:21)
[2018-07-14] MEDS: CLONAZEPAM 1 MG TABLET PO SCH (09:21)
[2018-07-14] MEDS: ASPIRIN 81 MG TABLET, CHEWABLE PO SCH (09:21)
[2018-07-14] MEDS: LISINOPRIL 10 MG TABLET PO SCH (09:21)
[2018-07-14] MEDS: SERTRALINE HCL 50 MG TABLET PO SCH (09:21)
[2018-07-14] MEDS: TIOTROPIUM BROMIDE DPI 5 CAP/KIT (18 MCG/CAP) IH SCH (09:22)
[2018-07-14] MEDS: ARIPIPRAZOLE 2 MG TABLET PO SCH (09:22)
[2018-07-14] MEDS: TORSEMIDE 20 MG TABLET PO SCH (09:22)
[2018-07-14] MEDS: BUDESONIDE/FORMOTEROL 160-4.5 MCG 60 PUFF/6 GM MDI IH SCH ×2 (09:27→21:30)
[2018-07-14] MEDS ORDERED: (PENDING PHARMACY ID) (Clonazepam [Klonopin] 0.25 MG) PO SCH (10:00)
[2018-07-14] MEDS ORDERED: (PENDING PHARMACY ID) (Potassium Chloride [Klor-Con M20] 20 MEQ) PO SCH (10:00)
[2018-07-14 13:34] LABS: ANION GAP 9 (5-19); BLOOD UREA NITROGEN 17 mg/dL (7-20); CALCIUM 8.8 mg/dL (8.4-10.2); CARBON DIOXIDE 32 mmol/L (22-30); CHLORIDE 98 mmol/L (98-107); GLUCOSE 107 mg/dL (75-110); POTASSIUM 3.5 mmol/L (3.6-5.0); SODIUM 139.1 mmol/L (137-145)
[2018-07-14] MEDS: KETOCONAZOLE 2% SHAMPOO 120 ML BOTTLE TP PRN (14:03)
--- NOTE | 2018-07-14 14:42 | PDOC PROGRESS REPORT ---
Subjective Progress Note for:: 07/14/18 Subjective:: This is 73 years old male patient with past medical history of CHF, coronary artery disease status post coronary bypass graft, A. fib, hypertension, COPD, depression and diabetes mellitus [facility] for evaluation of weakness and fever. His urinalysis shows large leukocyte esterase and pyuria. And his white cell count is markedly elevated which is 22,000. He has also creatinine of 1.50 and BNP of 3700. His BNP elevated patient does not have signs and symptoms of congestive heart failure. His kidney function is improving. Reason For Visit: UTI SEPSIS AMS Physical Exam Vital Signs: Temp Pulse Resp BP Pulse Ox 98.2 F 100 16 138/81 H 100 07/14/18 11:39 07/14/18 11:39 07/14/18 11:39 07/14/18 11:39 07/14/18 11:39 Intake & Output 07/13/18 07/14/18 07/15/18 06:59 06:59 06:59 Intake Total 1680 2510 Output Total 2500 2860 Balance -820 -350 Weight 122.2 kg 123.5 kg General appearance: PRESENT: no acute distress, other - Seborrheic dermatitis Respiratory exam: PRESENT: clear to auscultation jacob. ABSENT: rales, rhonchi, wheezes Cardiovascular exam: PRESENT: RRR. ABSENT: diastolic murmur, rubs, systolic murmur Results Laboratory Results: 07/14/18 05:32 07/14/18 12:37 07/14/18 07/14/18 05:32 12:37 WBC 6.8 RBC 4.63 Hgb 13.6 Hct 39.5 MCV 85 MCH 29.4 MCHC 34.5 RDW 15.2 H Plt Count 195 Seg Neutrophils % 77.0 Lymphocytes % 7.5 L Monocytes % 11.8 Eosinophils % 2.5 Basophils % 1.2 Absolute Neutrophils 5.2 Absolute Lymphocytes 0.5 Absolute Monocytes 0.8 Absolute Eosinophils 0.2 Absolute Basophils 0.1 Sodium 139.1 Potassium 3.5 L Chloride 98 Carbon Dioxide 32 H Anion Gap 9 BUN 17 Creatinine 1.13 Est GFR ( Amer) > 60 Est GFR (Non-Af Amer) > 60 Glucose 107 Calcium 8.8 02/26/19 02/27/19 02/27/19 23:00 02:51 02:51 Troponin I 0.052 0.038 NT-Pro-B Natriuret Pep 3720 H Impressions: Chest X-Ray 07/11/18 22:09 IMPRESSION: No evidence of acute cardiopulmonary disease. Abdomen/Pelvis CT 07/12/18 00:13 IMPRESSION: No acute findings. Cholelithiasis. Nonobstructing left-sided nephrolithiasis. TECHNICAL DOCUMENTATION: Quality ID # 436: Final reports with documentation of one or more dose reduction techniques (e.g., Automated exposure control, adjustment of the mA and/or kV according to patient size, use of iterative reconstruction technique) copyright 2011 [employer]- All Rights Reserved Assessment & Plan - Diagnosis (1) Sepsis Is this a current diagnosis for this admission?: Yes Plan: Has resolved (2) Leukocytosis Is this a current diagnosis for this admission?: Yes Plan: Trending down (3) Acute encephalopathy Is this a current diagnosis for this admission?: Yes Plan: Due to UTI (4) Acute kidney injury Is this a current diagnosis for this admission?: Yes Plan: We will continue cautious hydration since patient has history of CHF. (5) Hypokalemia Is this a current diagnosis for this admission?: Yes Plan: Resolved (6) A-fib Qualifiers: Atrial fibrillation type: chronic Qualified Code(s): I48.2 - Chronic atrial fibrillation Is this a current diagnosis for this admission?: Yes Plan: Rate controlled (7) Type 2 diabetes mellitus Is this a current diagnosis for this admission?: Yes Plan: Continue current regimen (8) COPD (chronic obstructive pulmonary disease) Is this a current diagnosis for this admission?: Yes Plan: Continue bronchodilators as needed. (9) Systolic CHF Is this a current diagnosis for this admission?: Yes Plan: Compensated
[2018-07-14] MEDS: HYDRALAZINE HCL INJ/PF 20 MG/1 ML SDV IV PRN (17:38)
[2018-07-14] MEDS: CEFTRIAXONE 1 GM/D5W RTU 1 GM/50 ML RTUPB IV SCH (21:29)
[2018-07-14] MEDS: ATORVASTATIN CALCIUM 40 MG TABLET PO SCH (21:30)
[2018-07-15] MEDS: CLONAZEPAM 1 MG TABLET PO PRN ×2 (03:11→17:48)
[2018-07-15] MEDS: HYDRALAZINE HCL INJ/PF 20 MG/1 ML SDV IV PRN ×3 (04:55→23:54)
[2018-07-15] MEDS: ACETAMINOPHEN 325 MG TABLET PO PRN (05:00)
[2018-07-15] MEDS: LANSOPRAZOLE 15 MG TAB.RAP.DR PO SCH (05:01)
[2018-07-15] MEDS: BUPROPION HCL 100 MG TABLET PO SCH ×3 (05:01→21:59)
[2018-07-15] MEDS: HEPARIN SOD (PORCINE) 5,000 UNIT/ML 1 ML SYRINGE SUBCUT SCH ×3 (05:01→21:58)
[2018-07-15] MEDS: INSULIN LISPRO 100 UNIT/ML 3 ML VIAL SUBCUT SCH ×3 (08:45→16:45)
[2018-07-15] MEDS: ASPIRIN 81 MG TABLET, CHEWABLE PO SCH (09:44)
[2018-07-15] MEDS: DOCUSATE SODIUM 100 MG CAPSULE PO SCH (09:44)
[2018-07-15] MEDS: ARIPIPRAZOLE 2 MG TABLET PO SCH (09:44)
[2018-07-15] MEDS: TIOTROPIUM BROMIDE DPI 5 CAP/KIT (18 MCG/CAP) IH SCH (09:45)
[2018-07-15] MEDS: BUDESONIDE/FORMOTEROL 160-4.5 MCG 60 PUFF/6 GM MDI IH SCH ×2 (09:45→21:58)
[2018-07-15] MEDS: TORSEMIDE 20 MG TABLET PO SCH (09:45)
[2018-07-15] MEDS: FERROUS SULFATE 325 MG TABLET PO SCH (09:46)
[2018-07-15] MEDS: CLONAZEPAM 1 MG TABLET PO SCH (09:46)
[2018-07-15] MEDS: FINASTERIDE 5 MG TABLET PO SCH (09:46)
[2018-07-15] MEDS: LISINOPRIL 10 MG TABLET PO SCH (09:46)
[2018-07-15] MEDS: TRAMADOL HCL 50 MG TABLET PO PRN ×2 (09:46→21:59)
[2018-07-15] MEDS: ISOSORBIDE MONONITRATE 30 MG TAB.ER.24H PO SCH (09:46)
[2018-07-15] MEDS: METOPROLOL TARTRATE 25 MG TABLET PO SCH ×2 (09:46→21:58)
[2018-07-15] MEDS: SERTRALINE HCL 50 MG TABLET PO SCH (09:46)
[2018-07-15] MEDS: POTASSIUM CHLORIDE 10 MEQ CAPSULE.ER PO SCH (09:46)
[2018-07-15] MEDS: GUAIFENESIN 600 MG TABLET.SA PO SCH ×2 (09:46→21:59)
[2018-07-15] MEDS ORDERED: FLUCONAZOLE 100 MG TABLET PO ONE (12:30)
--- NOTE | 2018-07-15 15:52 | PDOC PROGRESS REPORT ---
Subjective Progress Note for:: 07/15/18 Subjective:: Patient is seen resting in bed. He is awake, alert, oriented x3. He denies any chest pain, shortness of breath or dyspnea. He denies nausea, vomiting or abdominal pain. He diarrhea or dysuria. He denies any significant arthralgias or myalgias. He denies any fever or chills overnight. He complains about his tinea versicolor itching on his face. He denies any other complaints at the present time. Reason For Visit: UTI SEPSIS AMS Physical Exam Vital Signs: Temp Pulse Resp BP Pulse Ox 98.0 F 92 21 H 154/84 H 93 07/15/18 08:00 07/15/18 08:00 07/15/18 08:00 07/15/18 08:00 07/15/18 09:51 Intake & Output 07/14/18 07/15/18 07/16/18 06:59 06:59 06:59 Intake Total 2510 2604 Output Total 2860 6180 Balance -350 -3576 Weight 123.5 kg 123 kg General appearance: PRESENT: no acute distress, morbidly obese, well-developed, well-nourished Head exam: PRESENT: atraumatic, normocephalic Eye exam: PRESENT: conjunctiva pink, EOMI, PERRLA. ABSENT: scleral icterus Ear exam: PRESENT: normal external ear exam Mouth exam: PRESENT: moist, tongue midline Neck exam: ABSENT: carotid bruit, JVD, lymphadenopathy, thyromegaly Respiratory exam: PRESENT: clear to auscultation jacob. ABSENT: rales, rhonchi, wheezes Cardiovascular exam: PRESENT: RRR. ABSENT: diastolic murmur, rubs, systolic murmur Pulses: PRESENT: normal dorsalis pedis pul Vascular exam: PRESENT: normal capillary refill Rectal exam: PRESENT: deferred Extremities exam: PRESENT: full ROM. ABSENT: calf tenderness, clubbing, pedal edema Musculoskeletal exam: PRESENT: ambulatory Neurological exam: PRESENT: alert, awake, oriented to person, oriented to place, oriented to time, oriented to situation, CN II-XII grossly intact. ABSENT: motor sensory deficit Psychiatric exam: PRESENT: appropriate affect, normal mood. ABSENT: homicidal ideation, suicidal ideation Skin exam: PRESENT: dry - Tinea vesicular lesions on face and scalp, erythema, rash, warm Results Laboratory Results: 07/14/18 05:32 07/14/18 12:37 07/14/18 12:37 Sodium 139.1 Potassium 3.5 L Chloride 98 Carbon Dioxide 32 H Anion Gap 9 BUN 17 Creatinine 1.13 Est GFR ( Amer) > 60 Est GFR (Non-Af Amer) > 60 Glucose 107 Calcium 8.8 07/11/18 07/12/18 07/12/18 23:00 02:51 02:51 Troponin I 0.052 0.038 NT-Pro-B Natriuret Pep 3720 H Impressions: Chest X-Ray 07/11/18 22:09 IMPRESSION: No evidence of acute cardiopulmonary disease. Abdomen/Pelvis CT 07/12/18 00:13 IMPRESSION: No acute findings. Cholelithiasis. Nonobstructing left-sided nephrolithiasis. TECHNICAL DOCUMENTATION: Quality ID # 436: Final reports with documentation of one or more dose reduction techniques (e.g., Automated exposure control, adjustment of the mA and/or kV according to patient size, use of iterative reconstruction technique) copyright 2011 [employer]- All Rights Reserved Assessment & Plan - Diagnosis (1) Sepsis Is this a current diagnosis for this admission?: Yes Plan: Resolved after IV hydration IV antibiotics. Blood cultures have remained negative. (2) Urinary tract infection Qualifiers: Urinary tract infection type: site unspecified Hematuria presence: without hematuria Qualified Code(s): N39.0 - Urinary tract infection, site not specified Is this a current diagnosis for this admission?: Yes Plan: We will discontinue IV ceftriaxone and place on oral Ceftin in preparation for discharge back to assisted living on Tuesday (3) Atrial fibrillation Is this a current diagnosis for this admission?: Yes Plan: Presently sinus rhythm. Continue current medications. (4) Hypokalemia Is this a current diagnosis for this admission?: Yes Plan: Repleted and monitor (5) Leukocytosis Is this a current diagnosis for this admission?: Yes Plan: Resolved secondary to UTI. (6) Morbid obesity with BMI of 40.0-44.9, adult Is this a current diagnosis for this admission?: Yes Plan: Counseled. (7) Systolic CHF Qualifiers: Heart failure chronicity: chronic Qualified Code(s): I50.22 - Chronic systolic (congestive) heart failure Is this a current diagnosis for this admission?: Yes Plan: He appears euvolemic at the present time. (8) Type 2 diabetes mellitus Is this a current diagnosis for this admission?: Yes Plan: Continue current medications and sliding scale coverage (9) Tinea Is this a current diagnosis for this admission?: Yes Plan: Worsening on his face around thomas we will give one-time dose of fluconazole. Continue ketoconazole shampoo twice weekly - Time Time Spent with patient: 25-34 minutes Total Critical Time (Minutes): 25 Medications reviewed and adjusted accordingly: Yes Anticipated discharge: Other Within: within 48 hours - Assisted living facility [facility] Tuesday - Inpatient Certification Based on my medical assessment, after consideration of the patient's comorbidities, presenting symptoms, or acuity I expect that the services needed warrant INPATIENT care.: Yes I certify that my determination is in accordance with my understanding of Medicare's requirements for reasonable and necessary INPATIENT services [42 CFR 412.3e].: Yes Medical Necessity: Failure to Improve With Outpatient Therapy, Need for IV Antibiotics, Risk of Complication if Not Cared For in Hospital
[2018-07-15] MEDS: CEFUROXIME 500 MG TABLET PO SCH (17:18)
[2018-07-15] MEDS: ATORVASTATIN CALCIUM 40 MG TABLET PO SCH (21:58)
[2018-07-16] MEDS: TRAMADOL HCL 50 MG TABLET PO PRN ×4 (03:20→22:56)
[2018-07-16] MEDS: BUPROPION HCL 100 MG TABLET PO SCH ×3 (05:08→22:59)
[2018-07-16] MEDS: HEPARIN SOD (PORCINE) 5,000 UNIT/ML 1 ML SYRINGE SUBCUT SCH ×3 (05:09→22:52)
[2018-07-16] MEDS: LANSOPRAZOLE 15 MG TAB.RAP.DR PO SCH (05:09)
[2018-07-16] MEDS: CEFUROXIME 500 MG TABLET PO SCH ×2 (05:10→17:16)
[2018-07-16 07:33] LABS: ANION GAP 9 (5-19); BLOOD UREA NITROGEN 14 mg/dL (7-20); CARBON DIOXIDE 33 mmol/L (22-30); CHLORIDE 98 mmol/L (98-107); GLUCOSE 98 mg/dL (75-110); POTASSIUM 3.7 mmol/L (3.6-5.0); SODIUM 140.4 mmol/L (137-145)
[2018-07-16] MEDS: INSULIN LISPRO 100 UNIT/ML 3 ML VIAL SUBCUT SCH ×3 (08:45→16:55)
[2018-07-16] MEDS: ASPIRIN 81 MG TABLET, CHEWABLE PO SCH (10:08)
[2018-07-16] MEDS: ARIPIPRAZOLE 2 MG TABLET PO SCH (10:08)
[2018-07-16] MEDS: BUDESONIDE/FORMOTEROL 160-4.5 MCG 60 PUFF/6 GM MDI IH SCH ×2 (10:08→22:59)
[2018-07-16] MEDS: TIOTROPIUM BROMIDE DPI 5 CAP/KIT (18 MCG/CAP) IH SCH (10:08)
[2018-07-16] MEDS: DOCUSATE SODIUM 100 MG CAPSULE PO SCH (10:08)
[2018-07-16] MEDS: POTASSIUM CHLORIDE 10 MEQ CAPSULE.ER PO SCH (10:09)
[2018-07-16] MEDS: ISOSORBIDE MONONITRATE 30 MG TAB.ER.24H PO SCH (10:09)
[2018-07-16] MEDS: TORSEMIDE 20 MG TABLET PO SCH (10:09)
[2018-07-16] MEDS: CLONAZEPAM 1 MG TABLET PO SCH (10:09)
[2018-07-16] MEDS: FERROUS SULFATE 325 MG TABLET PO SCH (10:09)
[2018-07-16] MEDS: FINASTERIDE 5 MG TABLET PO SCH (10:10)
[2018-07-16] MEDS: GUAIFENESIN 600 MG TABLET.SA PO SCH ×2 (10:10→22:51)
[2018-07-16] MEDS: LISINOPRIL 10 MG TABLET PO SCH (10:10)
[2018-07-16] MEDS: METOPROLOL TARTRATE 25 MG TABLET PO SCH ×2 (10:10→22:52)
[2018-07-16] MEDS: SERTRALINE HCL 50 MG TABLET PO SCH (10:11)
--- NOTE | 2018-07-16 15:26 | PDOC PROGRESS REPORT ---
Subjective Progress Note for:: 07/16/18 Subjective:: Patient is seen resting in bed. He is awake, alert, oriented x3. He denies any chest pain, shortness of breath or dyspnea. He denies nausea, vomiting or abdominal pain. He diarrhea or dysuria. He denies any significant arthralgias or myalgias. He denies any fever or chills overnight. He complains about his tinea barbae rash itching. He denies any other complaints at the present time. Reason For Visit: UTI SEPSIS AMS Physical Exam Vital Signs: Temp Pulse Resp BP Pulse Ox 97.4 F 90 20 161/97 H 100 07/16/18 08:00 07/16/18 08:00 07/16/18 08:00 07/16/18 08:00 07/16/18 08:00 Intake & Output 07/15/18 07/16/18 07/17/18 06:59 06:59 06:59 Intake Total 2604 2318 Output Total 6180 875 Balance -3576 1443 Weight 123 kg 121.5 kg General appearance: PRESENT: no acute distress, morbidly obese, well-developed, well-nourished, other - tinea barbae rash present Head exam: PRESENT: atraumatic, normocephalic Eye exam: PRESENT: conjunctiva pink, EOMI, PERRLA. ABSENT: scleral icterus Ear exam: PRESENT: normal external ear exam Mouth exam: PRESENT: moist, tongue midline Neck exam: ABSENT: carotid bruit, JVD, lymphadenopathy, thyromegaly Respiratory exam: PRESENT: clear to auscultation jacob. ABSENT: rales, rhonchi, wheezes Cardiovascular exam: PRESENT: RRR. ABSENT: diastolic murmur, rubs, systolic murmur Pulses: PRESENT: normal dorsalis pedis pul Vascular exam: PRESENT: normal capillary refill GI/Abdominal exam: PRESENT: normal bowel sounds, soft. ABSENT: distended, guarding, mass, organolmegaly, rebound, tenderness Rectal exam: PRESENT: deferred Extremities exam: PRESENT: full ROM. ABSENT: calf tenderness, clubbing, pedal edema Musculoskeletal exam: PRESENT: ambulatory, full ROM Neurological exam: PRESENT: alert, awake, oriented to person, oriented to place, oriented to time, oriented to situation, CN II-XII grossly intact. ABSENT: motor sensory deficit Psychiatric exam: PRESENT: appropriate affect, normal mood. ABSENT: homicidal ideation, suicidal ideation Skin exam: PRESENT: dry, intact, warm. ABSENT: cyanosis, rash Results Laboratory Results: 07/14/18 05:32 07/16/18 05:39 07/16/18 05:39 Sodium 140.4 Potassium 3.7 Chloride 98 Carbon Dioxide 33 H Anion Gap 9 BUN 14 Creatinine 1.11 Est GFR ( Amer) > 60 Est GFR (Non-Af Amer) > 60 Glucose 98 Calcium 9.0 07/11/18 07/12/18 07/12/18 23:00 02:51 02:51 Troponin I 0.052 0.038 NT-Pro-B Natriuret Pep 3720 H Impressions: Chest X-Ray 07/11/18 22:09 IMPRESSION: No evidence of acute cardiopulmonary disease. Abdomen/Pelvis CT 07/12/18 00:13 IMPRESSION: No acute findings. Cholelithiasis. Nonobstructing left-sided nephrolithiasis. TECHNICAL DOCUMENTATION: Quality ID # 436: Final reports with documentation of one or more dose reduction techniques (e.g., Automated exposure control, adjustment of the mA and/or kV according to patient size, use of iterative reconstruction technique) copyright 2011 [employer]- All Rights Reserved Assessment & Plan - Diagnosis (1) Urinary tract infection Qualifiers: Urinary tract infection type: site unspecified Hematuria presence: without hematuria Qualified Code(s): N39.0 - Urinary tract infection, site not specified Is this a current diagnosis for this admission?: Yes Plan: We will discontinue IV ceftriaxone and place on oral Ceftin in preparation for discharge back to assisted living on Tuesday (2) Atrial fibrillation Is this a current diagnosis for this admission?: Yes Plan: Presently sinus rhythm. Continue current medications. (3) Hypokalemia Is this a current diagnosis for this admission?: Yes Plan: Repleted and monitor (4) Morbid obesity with BMI of 40.0-44.9, adult Is this a current diagnosis for this admission?: Yes Plan: Counseled. (5) Systolic CHF Qualifiers: Heart failure chronicity: chronic Qualified Code(s): I50.22 - Chronic systolic (congestive) heart failure Is this a current diagnosis for this admission?: Yes Plan: He appears euvolemic at the present time. (6) Type 2 diabetes mellitus Is this a current diagnosis for this admission?: Yes Plan: Continue current medications and sliding scale coverage (7) Tinea Is this a current diagnosis for this admission?: Yes Plan: Worsening on his face around thomas we will give one-time dose of fluconazole. Continue ketoconazole shampoo twice weekly (8) Sepsis Is this a current diagnosis for this admission?: Yes Plan: Ruled out. Patient presented with fever, tachycardia and leucocytosis which quickly resolved with IV fluids and antibiotic therapy (9) Leukocytosis Is this a current diagnosis for this admission?: Yes Plan: Resolved secondary to UTI. - Time Time Spent with patient: 25-34 minutes Total Critical Time (Minutes): 25 Medications reviewed and adjusted accordingly: Yes Anticipated discharge: Other - Assisted living - Inpatient Certification Based on my medical assessment, after consideration of the patient's comorbidities, presenting symptoms, or acuity I expect that the services needed warrant INPATIENT care.: Yes I certify that my determination is in accordance with my understanding of Medicare's requirements for reasonable and necessary INPATIENT services [42 CFR 412.3e].: Yes Medical Necessity: Failure to Improve With Outpatient Therapy, Need for IV Antibiotics
[2018-07-16] MEDS: ACETAMINOPHEN 325 MG TABLET PO PRN (20:13)
[2018-07-16] MEDS: ATORVASTATIN CALCIUM 40 MG TABLET PO SCH (22:52)
[2018-07-16] MEDS: HYDRALAZINE HCL INJ/PF 20 MG/1 ML SDV IV PRN (22:57)
[2018-07-17] MEDS: CLONAZEPAM 1 MG TABLET PO PRN ×2 (03:00→19:35)
[2018-07-17] MEDS: HEPARIN SOD (PORCINE) 5,000 UNIT/ML 1 ML SYRINGE SUBCUT SCH ×3 (06:01→22:36)
[2018-07-17] MEDS: BUPROPION HCL 100 MG TABLET PO SCH ×3 (06:01→22:37)
[2018-07-17] MEDS: CEFUROXIME 500 MG TABLET PO SCH ×2 (06:01→17:17)
[2018-07-17] MEDS: LANSOPRAZOLE 15 MG TAB.RAP.DR PO SCH (06:01)
[2018-07-17] MEDS: INSULIN LISPRO 100 UNIT/ML 3 ML VIAL SUBCUT SCH ×3 (07:51→16:32)
[2018-07-17] MEDS: LISINOPRIL 10 MG TABLET PO SCH (09:36)
[2018-07-17] MEDS: METOPROLOL TARTRATE 25 MG TABLET PO SCH ×2 (09:36→22:36)
[2018-07-17] MEDS: FERROUS SULFATE 325 MG TABLET PO SCH (09:36)
[2018-07-17] MEDS: SERTRALINE HCL 50 MG TABLET PO SCH (09:37)
[2018-07-17] MEDS: GUAIFENESIN 600 MG TABLET.SA PO SCH ×2 (09:37→22:36)
[2018-07-17] MEDS: CLONAZEPAM 1 MG TABLET PO SCH (09:37)
[2018-07-17] MEDS: ASPIRIN 81 MG TABLET, CHEWABLE PO SCH (09:37)
[2018-07-17] MEDS: ISOSORBIDE MONONITRATE 30 MG TAB.ER.24H PO SCH (09:38)
[2018-07-17] MEDS: FINASTERIDE 5 MG TABLET PO SCH (09:38)
[2018-07-17] MEDS: DOCUSATE SODIUM 100 MG CAPSULE PO SCH (09:38)
[2018-07-17] MEDS: POTASSIUM CHLORIDE 10 MEQ CAPSULE.ER PO SCH (09:38)
[2018-07-17] MEDS: TIOTROPIUM BROMIDE DPI 5 CAP/KIT (18 MCG/CAP) IH SCH (09:38)
[2018-07-17] MEDS: BUDESONIDE/FORMOTEROL 160-4.5 MCG 60 PUFF/6 GM MDI IH SCH ×2 (09:39→22:36)
[2018-07-17] MEDS: TORSEMIDE 20 MG TABLET PO SCH (09:39)
[2018-07-17] MEDS: ARIPIPRAZOLE 2 MG TABLET PO SCH (09:40)
[2018-07-17] MEDS: TRAMADOL HCL 50 MG TABLET PO PRN ×2 (11:17→17:17)
[2018-07-17] MEDS ORDERED: IPRATROPIUM/ALBUTEROL 0.5-2.5 MG/3 ML AMPUL NEB PRN (12:43)
[2018-07-17] MEDS ORDERED: LOPERAMIDE HCL 2 MG CAPSULE PO PRN (12:43)
[2018-07-17] MEDS ORDERED: MAGNESIUM HYDROXIDE SUSP 30 ML UDCUP PO PRN (12:43)
[2018-07-17] MEDS ORDERED: ALBUTEROL SULFATE HFA (90 MCG/PUFF) 200 PUFF/8.5 GM MDI IH PRN (12:43)
[2018-07-17] MEDS ORDERED: MAG HYDROX/AL HYDROX/SIMETH SUSP 30 ML UDCUP PO PRN (12:43)
--- NOTE | 2018-07-17 13:37 | PDOC PROGRESS REPORT ---
Subjective Progress Note for:: 07/17/18 Subjective:: Patient is seen resting in bed. He is awake, alert, oriented x3. He denies any chest pain, shortness of breath or dyspnea. He denies nausea, vomiting or abdominal pain. He diarrhea or dysuria. He denies any significant arthralgias or myalgias. He denies any fever or chills overnight. He complains about his tinea barbae rash itching. He denies any other complaints at the present time. 07/17/2018-patient is comfortable in the bed. Is supposed to go back to assisted living today. But the blood pressures are running persistently high. Latest blood pressure is 150/105. I am going to adjust his blood pressures today most likely he may go back to assisted living tomorrow. Patient is afebrile no acute events in the last 24 hours. Reason For Visit: UTI SEPSIS AMS Physical Exam Vital Signs: Temp Pulse Resp BP Pulse Ox 98.1 F 65 17 150/105 H 100 07/17/18 11:25 07/17/18 11:25 07/17/18 11:25 07/17/18 11:25 07/17/18 11:25 Intake & Output 07/16/18 07/17/18 07/18/18 06:59 06:59 06:59 Intake Total 2318 4406 Output Total 875 Balance 1443 4406 Weight 121.5 kg 119.4 kg General appearance: PRESENT: no acute distress, obese Head exam: PRESENT: atraumatic Eye exam: PRESENT: PERRLA Teeth exam: PRESENT: poor dentation Neck exam: ABSENT: carotid bruit, JVD, lymphadenopathy, thyromegaly Respiratory exam: PRESENT: clear to auscultation jacob. ABSENT: rales, rhonchi, wheezes Cardiovascular exam: PRESENT: RRR. ABSENT: diastolic murmur, rubs, systolic murmur GI/Abdominal exam: PRESENT: normal bowel sounds, soft. ABSENT: distended, guarding, mass, organolmegaly, rebound, tenderness Extremities exam: PRESENT: full ROM. ABSENT: calf tenderness, clubbing, pedal edema Neurological exam: PRESENT: alert, awake, oriented to person, oriented to place, oriented to time, oriented to situation, CN II-XII grossly intact. ABSENT: motor sensory deficit Psychiatric exam: PRESENT: appropriate affect, normal mood. ABSENT: homicidal ideation, suicidal ideation Results Laboratory Results: 07/14/18 05:32 07/16/18 05:39 07/11/18 23:40 Blood Blood Culture - Final NO GROWTH IN 5 DAYS 07/11/18 23:00 Blood Blood Culture - Final NO GROWTH IN 5 DAYS 07/11/18 07/12/18 07/12/18 23:00 02:51 02:51 Troponin I 0.052 0.038 NT-Pro-B Natriuret Pep 3720 H Impressions: Chest X-Ray 07/11/18 22:09 IMPRESSION: No evidence of acute cardiopulmonary disease. Abdomen/Pelvis CT 07/12/18 00:13 IMPRESSION: No acute findings. Cholelithiasis. Nonobstructing left-sided nephrolithiasis. TECHNICAL DOCUMENTATION: Quality ID # 436: Final reports with documentation of one or more dose reduction techniques (e.g., Automated exposure control, adjustment of the mA and/or kV according to patient size, use of iterative reconstruction technique) copyright 2011 [employer]- All Rights Reserved Assessment & Plan - Diagnosis (1) Urinary tract infection Qualifiers: Urinary tract infection type: site unspecified Hematuria presence: without hematuria Qualified Code(s): N39.0 - Urinary tract infection, site not specified Is this a current diagnosis for this admission?: Yes Plan: 07/17/2018-patient came in with urinary tract infection positive for E. coli. Treated with IV Rocephin. He is off the antibiotics for now. T-max is 98.1. Recently on p.o. Ceftin. And is to continue the present management. Patient is admitted with sepsis most likely secondary to urinary tract infection. (2) A-fib Qualifiers: Atrial fibrillation type: chronic Qualified Code(s): I48.2 - Chronic atrial fibrillation Is this a current diagnosis for this admission?: No Plan: 07/17/2018-patient has history of paroxysmal atrial fibrillation. Presently on sinus rhythm. He is on metoprolol 25 mg p.o. twice daily. Plan to start him on aspirin 325 mg p.o. daily. (3) Hypokalemia Is this a current diagnosis for this admission?: Yes Plan: pt potassium is 3.7 hyperkalemia is resolved. (4) Systolic CHF Qualifiers: Heart failure chronicity: chronic Qualified Code(s): I50.22 - Chronic systolic (congestive) heart failure Is this a current diagnosis for this admission?: No Plan: 07/17/2018-and has history of congestive heart failure. We do not have any recent echocardiogram available. Patient might have most likely systolic chronic heart failure. Patient is euvolemic. (5) Morbid obesity with BMI of 40.0-44.9, adult Is this a current diagnosis for this admission?: No Plan: 07/17/2018-patient's BMI is more than 40 diet exercise weight loss lifestyle modifications are discussed with the patient. Dietary consult was requested. (6) Diabetes Is this a current diagnosis for this admission?: No Plan: 07/17/2018-patient has history of type II diabetes mellitus which was chronic. Patient is presently on insulin sliding scale. Plan to request for hemoglobin A1c check tomorrow. (7) HTN (hypertension) Is this a current diagnosis for this admission?: No Plan: 07/17/2018-patient has history of chronic hypertension blood pressure today is 150/105. He is on lisinopril 10 mg p.o. daily increase the lisinopril to 20 mg p.o. daily and added amlodipine 10 mg p.o. daily today. Plan is to recheck his blood pressures tomorrow also blood pressures are stable he will go back to assisted living. - Time Time Spent with patient: 25-34 minutes Medications reviewed and adjusted accordingly: Yes Anticipated discharge: Other - assisted living
[2018-07-17] MEDS: HYDRALAZINE HCL INJ/PF 20 MG/1 ML SDV IV PRN (20:40)
[2018-07-17] MEDS: TRAZODONE HCL 50 MG TABLET PO SCH (22:36)
[2018-07-17] MEDS: ATORVASTATIN CALCIUM 40 MG TABLET PO SCH (22:36)
[2018-07-18] MEDS: TRAMADOL HCL 50 MG TABLET PO PRN ×2 (03:34→10:31)
[2018-07-18] MEDS: HEPARIN SOD (PORCINE) 5,000 UNIT/ML 1 ML SYRINGE SUBCUT SCH ×3 (05:58→22:09)
[2018-07-18] MEDS: LANSOPRAZOLE 15 MG TAB.RAP.DR PO SCH (05:58)
[2018-07-18] MEDS: BUPROPION HCL 100 MG TABLET PO SCH ×3 (05:58→22:13)
[2018-07-18] MEDS: CEFUROXIME 500 MG TABLET PO SCH ×2 (05:58→17:04)
[2018-07-18 06:34] LABS: ABSOLUTE BASOPHILS # (AUTO) 0.1 10^3/uL (0.0-0.2); ABSOLUTE EOSINOPHILS # (AUTO) 0.2 10^3/uL (0.0-0.6); ABSOLUTE LYMPHOCYTES (AUTO) 1.4 10^3/uL (0.5-4.7); ABSOLUTE MONOCYTES (AUTO) 0.8 10^3/uL (0.1-1.4); ABSOLUTE NEUT (AUTO) 5.7 10^3/uL (1.7-8.2); EOSINOPHILS % (AUTO) 2.8 % (0-6); HEMATOCRIT 42.8 % (37.9-51.0); HEMOGLOBIN 14.4 g/dL (13.5-17.0); LYMPHOCYTES % (AUTO) 17.5 % (13-45); MEAN CORPUSCULAR HEMOGLOBIN 28.9 pg (27.0-33.4); MEAN CORPUSCULAR HGB CONC 33.6 g/dL (32.0-36.0); MEAN CORPUSCULAR VOLUME 86 fl (80-97); MONOCYTES % (AUTO) 9.3 % (3-13); PLATELET COUNT 293 10^3/uL (150-450); RED BLOOD COUNT 4.99 10^6/uL (4.35-5.55); RED CELL DISTRIBUTION WIDTH 15.3 % (11.5-14.0); SEGMENTED NEUTROPHILS % (AUTO) 69.4 % (42-78); TOTAL CELLS COUNTED % (AUTO) 100 %; WHITE BLOOD COUNT 8.1 10^3/uL (4.0-10.5)
[2018-07-18 06:53] LABS: ALBUMIN 3.8 g/dL (3.5-5.0); GLUCOSE 91 mg/dL (75-110); TOTAL PROTEIN 6.2 g/dL (6.3-8.2)
[2018-07-18 06:55] LABS: ALANINE AMINOTRANSFERASE 80 U/L (21-72); ALKALINE PHOSPHATASE 93 U/L (38-126); ANION GAP 9 (5-19); ASPARTATE AMINO TRANSFERASE 79 U/L (17-59); BILIRUBIN,DIRECT 0.3 mg/dL (0.0-0.4); BILIRUBIN,TOTAL 0.6 mg/dL (0.2-1.3); BLOOD UREA NITROGEN 17 mg/dL (7-20); CALCIUM 9.4 mg/dL (8.4-10.2); CARBON DIOXIDE 31 mmol/L (22-30); CHLORIDE 101 mmol/L (98-107); POTASSIUM 3.8 mmol/L (3.6-5.0); SODIUM 141.3 mmol/L (137-145)
[2018-07-18] MEDS: INSULIN LISPRO 100 UNIT/ML 3 ML VIAL SUBCUT SCH ×3 (09:05→17:02)
[2018-07-18] MEDS: BUDESONIDE/FORMOTEROL 160-4.5 MCG 60 PUFF/6 GM MDI IH SCH ×2 (10:28→22:15)
[2018-07-18] MEDS: TIOTROPIUM BROMIDE DPI 5 CAP/KIT (18 MCG/CAP) IH SCH (10:28)
[2018-07-18] MEDS: DOCUSATE SODIUM 100 MG CAPSULE PO SCH (10:29)
[2018-07-18] MEDS: ARIPIPRAZOLE 2 MG TABLET PO SCH (10:29)
[2018-07-18] MEDS: ASPIRIN 325 MG TABLET PO SCH (10:29)
[2018-07-18] MEDS: TORSEMIDE 20 MG TABLET PO SCH (10:29)
[2018-07-18] MEDS: FERROUS SULFATE 325 MG TABLET PO SCH (10:29)
[2018-07-18] MEDS: GUAIFENESIN 600 MG TABLET.SA PO SCH ×2 (10:30→22:09)
[2018-07-18] MEDS: MAGNESIUM OXIDE 400 MG TABLET PO SCH (10:30)
[2018-07-18] MEDS: POTASSIUM CHLORIDE 10 MEQ CAPSULE.ER PO SCH (10:30)
[2018-07-18] MEDS: AMLODIPINE BESYLATE 10 MG TABLET PO SCH (10:30)
[2018-07-18] MEDS: ISOSORBIDE MONONITRATE 30 MG TAB.ER.24H PO SCH (10:30)
[2018-07-18] MEDS: METOPROLOL TARTRATE 25 MG TABLET PO SCH ×2 (10:30→22:09)
[2018-07-18] MEDS: CLONAZEPAM 1 MG TABLET PO SCH (10:30)
[2018-07-18] MEDS: LISINOPRIL 10 MG TABLET PO SCH (10:31)
[2018-07-18] MEDS: SERTRALINE HCL 50 MG TABLET PO SCH (10:31)
[2018-07-18] MEDS: FINASTERIDE 5 MG TABLET PO SCH (10:31)
--- NOTE | 2018-07-18 13:58 | PDOC DISCHARGE SUMMARY ---
General - Admit/Disc Date/PCP Admission Date/Primary Care Provider: 07/12/18 03:25 LUISITO MAK MD Discharge Date: 07/18/18 - Discharge Diagnosis (1) Urinary tract infection Is this a current diagnosis for this admission?: Yes Summary: 07/17/2018-patient came in with urinary tract infection positive for E. coli. Treated with IV Rocephin. He is off the antibiotics for now. T-max is 98.1. Recently on p.o. Ceftin. And is to continue the present management. Patient is admitted with sepsis most likely secondary to urinary tract infection. 07/18/2018 patient was admitted with urinary tract infection leading to sepsis. Sepsis is resolved. Urine culture is positive for E. coli. He is going back to assisted living on Ceftin. (2) A-fib Is this a current diagnosis for this admission?: No Summary: 07/17/2018-patient has history of paroxysmal atrial fibrillation presently in sinus rhythm during the hospital stay. On metoprolol 25 mg p.o. twice a day started on aspirin 35 mg p.o. daily during this hospital stay patient is advised to continue those medications in the assisted living. (3) Hypokalemia Is this a current diagnosis for this admission?: Yes Summary: 07/18/2018-potassium level today is 3.8 hypokalemia is resolved. (4) Systolic CHF Is this a current diagnosis for this admission?: No Summary: 07/18/2018-patient has history of chronic systolic heart failure. Patient is euvolemic. (5) Morbid obesity with BMI of 40.0-44.9, adult Is this a current diagnosis for this admission?: No (6) Diabetes Is this a current diagnosis for this admission?: No Summary: 07/18/2018-patient has history of type 2 diabetes mellitus he is on insulin sliding scale while he was in the hospital. Latest blood sugar is 104 and hemoglobin A1c is 5.6. Dietary consult was done during the hospital stay. (7) HTN (hypertension) Is this a current diagnosis for this admission?: No Summary: 07/18/2018-patient has history of chronic hypertension he is 156/83 with heart rate of 84. Presently on amlodipine 10 mg daily, lisinopril 20 mg daily, metoprolol 25 mg p.o. every 12 hours. Patient is advised to continue this medications in the assisted living. - Additional Information Resuscitation Status: Full Code Discharge Diet: Cardiac Discharge Activity: Activity As Tolerated Prescriptions: Cefuroxime Axetil [Ceftin 500 mg Tablet] 500 mg PO Q12A #10 tablet Home Medications: Acetaminophen [Tylenol Extra Strength 500 mg Tablet] 1 tab PO Q4HP PRN 07/12/18 Albuterol Sulfate [Proair HFA Inhalation Aerosol 8.5 gm MDI] 2 puff IH Q4HP PRN 07/12/18 Aripiprazole [Abilify 2 mg Tablet] 2 mg PO DAILY 07/12/18 Aspirin [Aspirin 81 mg Chewable Tablet] 81 mg PO DAILY 07/12/18 Atorvastatin Calcium [Lipitor 40 mg Tablet] 40 mg PO DAILY 07/12/18 Budesonide/Formoterol Fumarate [Symbicort HFA 160-4.5 mcg Inhaler 6 gm] 1 puff IH Q12 07/12/18 Bupropion HCl [Wellbutrin Xl 300mg 24hr Tablet] 1 tab PO DAILY 07/12/18 Clonazepam [Klonopin] 0.25 mg PO DAILY 07/12/18 Ferrous Sulfate [Feosol 325 mg Tablet] 325 mg PO DAILY 07/12/18 Finasteride [Proscar 5 mg Tablet] 5 mg PO DAILY 07/12/18 Guaifenesin [Mucinex] 1,200 mg PO Q12 07/12/18 Guaifenesin [Robitussin Syrup 200 mg/10 ml Ud Cup] 200 mg PO Q4HP PRN 07/12/18 Guaifenesin/D-Methorphan Hb [Robitussin-Dm Syrup 10 ml Udcup] 10 ml PO Q4HP PRN 07/12/18 Ipratropium/Albuterol Sulfate [Duoneb 3 ml Ampul] 3 ml NEB RTQIDP PRN 07/12/18 Isosorbide Mononitrate [Imdur 30 mg Tablet.er] 30 mg PO DAILY 07/12/18 Ketoconazole [Nizoral 2% Shampoo 120 ml Bottle] 1 applic TP .BIWEEKLY 07/12/18 Lisinopril [Prinivil 10 mg Tablet] 10 mg PO DAILY 07/12/18 Loperamide HCl [Imodium 2 mg Capsule] 2 mg PO ASDIR PRN MDD 6 TABLETS 07/12/18 Mag Hydrox/Al Hydrox/Simeth [Maalox Plus Susp 30 Udcup] 30 ml PO Q4HP PRN 07/12/18 Magnesium Hydroxide [Milk of Magnesia 30 ml Udcup] 30 ml PO DAILYP PRN 07/12/18 Magnesium Oxide [Mag-Ox 400 mg Tablet] 400 mg PO DAILY 07/12/18 Metoprolol Tartrate [Lopressor 25 mg Tablet] 25 mg PO Q12 07/12/18 Mometasone Furoate [Elocon] 1 applic TP BIDP PRN 07/12/18 Neomy Sulf/Bacitrac Zn/Poly [Neosporin Ointment 15 gm] 1 applic TP DAILYP PRN 07/12/18 Omeprazole 20 mg PO Q6AM 07/12/18 Potassium Chloride [Klor-Con M20] 20 meq PO DAILY 07/12/18 Sertraline HCl [Zoloft 50 mg Tablet] 50 mg PO DAILY 07/12/18 Tiotropium [place] [Spiriva Handihaler 5 Cap/Kit (18 Mcg/Cap)] 1 cap IH DAILY 07/12/18 Torsemide [Demadex 20 mg Tablet] 20 mg PO DAILY 07/12/18 Tramadol HCl [Ultram 50 mg Tablet] 50 mg PO Q4HP PRN 07/12/18 Trazodone HCl [Desyrel 50 mg Tablet] 50 mg PO QHS 07/12/18 Amlodipine Besylate [Norvasc 10 mg Tablet] 10 mg PO DAILY tablet 07/18/18 Aspirin [Aspirin 325 mg Tablet] 325 mg PO DAILY tablet 07/18/18 Cefuroxime Axetil [Ceftin 500 mg Tablet] 500 mg PO Q12A #10 tablet 07/18/18 History of Present Illness History of Present Illness: CHAI GOLD is a 73 year old male 73 year old male with a past medical history of congestive heart failure, status post coronary artery bypass graft, A. fib not on anticoagulation, hypertension, diabetes, COPD, depression and PTSD. He is a retirement resident who was noted by staff to have generalized weakness and fever brought to the emergency room for evaluation where he is found to have altered mental status, leukocytosis, acute renal failure, hypokalemia and a urinary tract infection without obstruction. He started on IV fluids, potassium repletion empiric antibiotics and referred to the hospitalist for admission. The patient is a poor historian with acute encephalopathy unable to provide significant history. His medication reconciliation is pending from nursing facility. Physical Exam Vital Signs: Temp Pulse Resp BP Pulse Ox 98.0 F 70 16 135/89 H 99 07/18/18 11:38 07/18/18 11:38 07/18/18 11:38 07/18/18 11:38 07/18/18 11:38 Intake & Output 07/17/18 07/18/18 07/19/18 06:59 06:59 06:59 Intake Total 4406 1503 502 Balance 4406 1503 502 Weight 119.4 kg 119.3 kg 119.3 kg General appearance: PRESENT: no acute distress, obese Head exam: PRESENT: atraumatic Eye exam: PRESENT: PERRLA Ear exam: PRESENT: normal external ear exam Mouth exam: PRESENT: moist, tongue midline Neck exam: ABSENT: carotid bruit, JVD, lymphadenopathy, thyromegaly Respiratory exam: PRESENT: clear to auscultation jacob. ABSENT: rales, rhonchi, wheezes Cardiovascular exam: PRESENT: RRR. ABSENT: diastolic murmur, rubs, systolic murmur GI/Abdominal exam: PRESENT: normal bowel sounds, soft. ABSENT: distended, guarding, mass, organolmegaly, rebound, tenderness Neurological exam: PRESENT: alert, awake, oriented to person, oriented to place, oriented to time, oriented to situation, CN II-XII grossly intact. ABSENT: motor sensory deficit Results Laboratory Results: 07/18/18 06:15 07/18/18 06:15 07/18/18 07/18/18 06:15 06:15 WBC 8.1 RBC 4.99 Hgb 14.4 Hct 42.8 MCV 86 MCH 28.9 MCHC 33.6 RDW 15.3 H Plt Count 293 Seg Neutrophils % 69.4 Lymphocytes % 17.5 Monocytes % 9.3 Eosinophils % 2.8 Basophils % 1.0 Absolute Neutrophils 5.7 Absolute Lymphocytes 1.4 Absolute Monocytes 0.8 Absolute Eosinophils 0.2 Absolute Basophils 0.1 Sodium 141.3 Potassium 3.8 Chloride 101 Carbon Dioxide 31 H Anion Gap 9 BUN 17 Creatinine 1.23 Est GFR ( Amer) > 60 Est GFR (Non-Af Amer) 58 L Glucose 91 Calcium 9.4 Magnesium 2.1 Total Bilirubin 0.6 AST 79 H ALT 80 H Alkaline Phosphatase 93 Total Protein 6.2 L Albumin 3.8 07/11/18 07/12/18 07/12/18 23:00 02:51 02:51 Troponin I 0.052 0.038 NT-Pro-B Natriuret Pep 3720 H Impressions: Chest X-Ray 07/11/18 22:09 IMPRESSION: No evidence of acute cardiopulmonary disease. Abdomen/Pelvis CT 07/12/18 00:13 IMPRESSION: No acute findings. Cholelithiasis. Nonobstructing left-sided nephrolithiasis. TECHNICAL DOCUMENTATION: Quality ID # 436: Final reports with documentation of one or more dose reduction techniques (e.g., Automated exposure control, adjustment of the mA and/or kV according to patient size, use of iterative reconstruction technique) copyright 2011 [employer]- All Rights Reserved Qualifiers - * PATIENT BEING DISCHARGED WITH ANY OF THE FOLLOWING DIAGNOSIS: No VTE patient discharged on overlapping Therapy?: No
[2018-07-18] MEDS: ATORVASTATIN CALCIUM 40 MG TABLET PO SCH (22:09)
[2018-07-18] MEDS: TRAZODONE HCL 50 MG TABLET PO SCH (22:09)
[2018-07-19] MEDS: TRAMADOL HCL 50 MG TABLET PO PRN ×2 (03:56→12:42)
[2018-07-19] MEDS: HEPARIN SOD (PORCINE) 5,000 UNIT/ML 1 ML SYRINGE SUBCUT SCH ×2 (05:33→14:07)
[2018-07-19] MEDS: LANSOPRAZOLE 15 MG TAB.RAP.DR PO SCH (05:34)
[2018-07-19] MEDS: BUPROPION HCL 100 MG TABLET PO SCH ×2 (05:34→14:07)
[2018-07-19] MEDS: CEFUROXIME 500 MG TABLET PO SCH (05:34)
[2018-07-19] MEDS: INSULIN LISPRO 100 UNIT/ML 3 ML VIAL SUBCUT SCH ×2 (07:45→12:03)
[2018-07-19] MEDS: POTASSIUM CHLORIDE 10 MEQ CAPSULE.ER PO SCH (10:24)
[2018-07-19] MEDS: FINASTERIDE 5 MG TABLET PO SCH (10:24)
[2018-07-19] MEDS: FERROUS SULFATE 325 MG TABLET PO SCH (10:25)
[2018-07-19] MEDS: DOCUSATE SODIUM 100 MG CAPSULE PO SCH (10:25)
[2018-07-19] MEDS: ISOSORBIDE MONONITRATE 30 MG TAB.ER.24H PO SCH (10:25)
[2018-07-19] MEDS: SERTRALINE HCL 50 MG TABLET PO SCH (10:25)
[2018-07-19] MEDS: METOPROLOL TARTRATE 25 MG TABLET PO SCH (10:25)
[2018-07-19] MEDS: MAGNESIUM OXIDE 400 MG TABLET PO SCH (10:25)
[2018-07-19] MEDS: GUAIFENESIN 600 MG TABLET.SA PO SCH (10:25)
[2018-07-19] MEDS: LISINOPRIL 10 MG TABLET PO SCH (10:25)
[2018-07-19] MEDS: AMLODIPINE BESYLATE 10 MG TABLET PO SCH (10:25)
[2018-07-19] MEDS: ASPIRIN 325 MG TABLET PO SCH (10:25)
[2018-07-19] MEDS: TORSEMIDE 20 MG TABLET PO SCH (10:26)
[2018-07-19] MEDS: ARIPIPRAZOLE 2 MG TABLET PO SCH (10:26)
[2018-07-19] MEDS: BUDESONIDE/FORMOTEROL 160-4.5 MCG 60 PUFF/6 GM MDI IH SCH (10:27)
[2018-07-19] MEDS: TIOTROPIUM BROMIDE DPI 5 CAP/KIT (18 MCG/CAP) IH SCH (10:31)
[2018-07-19 15:05] VITALS: BP 128/91
== END 2018-07-19 16:07 | disposition home health service (06) | DRG 871 ==
LOC: ER 21:36 → EH 07-12 03:25 → 4W 07-12 04:55
PROVIDERS: ADMIT Internal Medicine; ATTEND Internal Medicine
DX: A41.9 Sepsis, unspecified organism (principal); G93.41 Metabolic encephalopathy; N39.0 Urinary tract infection, site not specified; N17.9 Acute kidney failure, unspecified; I50.22 Chronic systolic (congestive) heart failure; Z68.41 Body mass index [BMI] 40.0-44.9, adult; E87.6 Hypokalemia; I48.2 Chronic atrial fibrillation; E11.9 Type 2 diabetes mellitus without complications; E66.01 Morbid (severe) obesity due to excess calories; N40.0 Benign prostatic hyperplasia without lower urinary tract symptoms; L21.9 Seborrheic dermatitis, unspecified; I25.10 Atherosclerotic heart disease of native coronary artery without angina pectoris; B96.20 Unspecified Escherichia coli [E. coli] as the cause of diseases classified elsewhere; B35.9 Dermatophytosis, unspecified; I11.0 Hypertensive heart disease with heart failure; J44.9 Chronic obstructive pulmonary disease, unspecified; F43.10 Post-traumatic stress disorder, unspecified; F32.9 Major depressive disorder, single episode, unspecified; Z82.49 Family history of ischemic heart disease and other diseases of the circulatory system; D72.829 Elevated white blood cell count, unspecified; Z79.82 Long term (current) use of aspirin; Z79.899 Other long term (current) drug therapy; Z95.1 Presence of aortocoronary bypass graft
CPT/HCPCS: 36415; 51701; 51702; 71045; 74177; 80048; 80053; 81001; 82803; 82962; 83036; 83605; 83735; 83880; 84100; 84484; 85025; 85610; 85730; 87040; 87086; 87088; 87186; 93005; 93010; 96365; 96366; 96367; 99285; J0360; J0696; J1644; J3475; J3480; J3490; J7030

== ENCOUNTER 2018-08-30 16:11 | Emergency (ER) | payer MEDICARE ==
--- NOTE | 2018-08-30 16:53 | ER Document Report ---
ED Medical Screen (RME) - General Chief Complaint: Abscess Stated Complaint: POSSIBLE CYST Time Seen by Provider: 08/30/18 16:49 Primary Care Provider: LUISITO MAK MD [Primary Care Provider] - Follow up as needed TRAVEL OUTSIDE OF THE [place] IN LAST 30 DAYS: No - HPI Notes: 08/30/18 16:51 Patient is a 73-year-old male who presents to the emergency department complaining of possible abscess to his left lateral thigh that is been present for 2-3 days. Patient states that he has had abscesses on his neck before the need to cut open in the past. No history of MRSA or diabetes. He is otherwise eating and drinking without difficulty. Denies drug allergies. Denies MARCUM, fever, neck pain, URI, CP, SOB, Abd pain. I have treated and performed a rapid initial assessment of this patient. A comprehensive ED assessment and evaluation of the patient, analysis of test results and completion of medical decision making process will be conducted by additional ED providers. PHYSICAL EXAMINATION: GENERAL: Well-appearing, well-nourished and in no acute distress. A&Ox4. Answers questions appropriately. LUNGS: Breath sounds clear to auscultation bilaterally and equal. No wheezes rales or rhonchi. HEART: Regular rate and rhythm without murmurs, rubs, gallops. Left leg: there is an erythemic, indurated, and fluctuant area noted. + tenderness. - Related Data Allergies/Adverse Reactions: No Known Drug Allergies Allergy (Verified 08/30/18 16:17) Past Medical History - Past Medical History Cardiac Medical History: Reports: Hx Atrial Fibrillation, Hx Congestive Heart Failure, Hx Hypertension Pulmonary Medical History: Reports: Hx COPD Endocrine Medical History: Reports: Hx Diabetes Mellitus Type 2 Renal/ Medical History: Denies: Hx Peritoneal Dialysis Psychiatric Medical History: Reports: Hx Depression Past Surgical History: Reports: Hx Coronary Artery Bypass Graft Physical Exam - Vital signs Vitals: Temp Pulse Resp BP Pulse Ox 97.2 F 75 16 127/80 H 99 08/30/18 16:35 08/30/18 16:35 08/30/18 16:35 08/30/18 16:35 08/30/18 16:35 Course - Vital Signs Vital signs: Temp Pulse Resp BP Pulse Ox 97.2 F 75 16 127/80 H 99 08/30/18 16:35 08/30/18 16:35 08/30/18 16:35 08/30/18 16:35 08/30/18 16:35 Doctor's Discharge - Discharge Referrals: LUISITO MAK MD [Primary Care Provider] - Follow up as needed
[2018-08-30] MEDS ORDERED: OXYCODONE-ACETAMINOPHEN 5-325 MG TABLET PO ONE (20:26)
[2018-08-30] MEDS ORDERED: SULFAMETHOXAZOLE/TRIMETHOPRIM 800-160 MG TABLET PO ONE (20:26)
[2018-08-30] MEDS ORDERED: CEPHALEXIN 500 MG CAPSULE PO ONE (20:26)
--- NOTE | 2018-08-30 20:32 | ER Document Report ---
Addendum entered and electronically signed by MARTHA MARIN NP 09/01/18 14:36: Provider Note Provider Note: junior assistant manager from patient's place of residence called stating that patient's daughter may not be able to bring him in for packing removal today. She states that the wound appears to be healing well as it looks improved from yesterday. I gave her the following instructions so that she can remove the packing and continue to do dressing changes to the abscess. Orders: Remove packing today, 09/01/2018. Change dressing at least twice daily, you may apply antibiotic ointment to the area and cover with a nonocclusive dressing such as a 4 x 4 and tape. Continue to watch for signs of worsening infection to include increased redness to the area or increased pain. These were also outlined in patient's discharge instructions. Original Note: ED General - General Chief Complaint: Abscess Stated Complaint: POSSIBLE CYST Time Seen by Provider: 08/30/18 16:49 Primary Care Provider: LUISITO MAK MD [Primary Care Provider] - Follow up as needed Notes: Patient is a 73-year-old male who presents the emergency department with complaints of possible abscess to his left thigh. Patient states this is been there for approximately 3-4 days. Reports some drainage from the area. Does have a history of abscesses in the past, states that he had one on his neck previously that had to be lanced. Patient is unsure if he has a history of MRSA. Denies fever. TRAVEL OUTSIDE OF THE [place] IN LAST 30 DAYS: No - Related Data Allergies/Adverse Reactions: No Known Drug Allergies Allergy (Verified 08/30/18 16:17) Past Medical History - General Information source: Patient - Social History Smoking Status: Former Smoker Frequency of alcohol use: None Drug Abuse: None Family History: Hypertension Patient has suicidal ideation: No Patient has homicidal ideation: No - Past Medical History Cardiac Medical History: Reports: Hx Atrial Fibrillation, Hx Congestive Heart Failure, Hx Hypercholesterolemia, Hx Hypertension Pulmonary Medical History: Reports: Hx COPD Endocrine Medical History: Reports: Hx Diabetes Mellitus Type 2 Renal/ Medical History: Denies: Hx Peritoneal Dialysis Psychiatric Medical History: Reports: Hx Depression Past Surgical History: Reports: Hx Coronary Artery Bypass Graft, Hx Orthopedic Surgery Review of Systems - Review of Systems Constitutional: No symptoms reported EENT: No symptoms reported Cardiovascular: No symptoms reported Respiratory: No symptoms reported Gastrointestinal: No symptoms reported Genitourinary: No symptoms reported Male Genitourinary: No symptoms reported Musculoskeletal: No symptoms reported Skin: See HPI Hematologic/Lymphatic: No symptoms reported Neurological/Psychological: No symptoms reported Physical Exam - Vital signs Vitals: Temp Pulse Resp BP Pulse Ox 97.2 F 75 16 127/80 H 99 08/30/18 16:35 08/30/18 16:35 08/30/18 16:35 08/30/18 16:35 08/30/18 16:35 - Notes Notes: PHYSICAL EXAMINATION: GENERAL: Well-appearing, well-nourished and in no acute distress. HEAD: Atraumatic, normocephalic. EYES: Pupils equal round and reactive to light, extraocular movements intact, sclera anicteric, conjunctiva are normal. ENT: Nares patent, oropharynx clear without exudates. Moist mucous membranes. NECK: Normal range of motion, supple without lymphadenopathy LUNGS: Breath sounds clear to auscultation bilaterally and equal. No wheezes rales or rhonchi. HEART: Regular rate and rhythm without murmurs ABDOMEN: Soft, nontender, nondistended abdomen. No guarding, no rebound. No masses appreciated. Musculoskeletal: Normal range of motion, no pitting or edema. No cyanosis. NEUROLOGICAL: Cranial nerves grossly intact. Normal speech, normal gait. Normal sensory, motor exams PSYCH: Normal mood, normal affect. SKIN: Area of erythema with induration and fluctuance noted to patient's left thigh. Small amount of drainage noted from the center. Course - Re-evaluation Re-evalutation: Incision and drainage was performed, patient tolerated well. Patient will be discharged home on oral antibiotics as well as pain medication. Patient instructed to return in 48 hours for a wound recheck and packing removal. Patient verbalizes understanding of ED return precautions as outlined in his discharge paperwork. - Vital Signs Vital signs: Temp Pulse Resp BP Pulse Ox 97.7 F 78 20 139/70 H 94 08/30/18 21:58 08/30/18 21:58 08/30/18 21:58 08/30/18 21:58 08/30/18 21:58 Procedures - Incision and Drainage Left thigh Type: Simple Anesthetic type: 1% Lidocaine Blade size: 11 I&D procedure: Betadine prep applied, Iodoform packing placed Incision Method: Incision made by scalpel Discharge - Discharge Clinical Impression: Abscess Cellulitis Qualifiers: Site of cellulitis: extremity Site of cellulitis of extremity: lower extremity Laterality: left Qualified Code(s): L03.116 - Cellulitis of left lower limb Condition: Stable Disposition: HOME, SELF-CARE Additional Instructions: ABSCESS: You have an abscess (boil). This a pus-forming infection, usually due to staph. Some boils may be left to drain on their own, but most require lancing. From the time the tender lump first appears, it may be three or four days before the abscess is ready to talha. Local heat and rest help at this stage of treatment. An antibiotic may prevent spread of the infection. Once the abscess is opened, packing may be placed into it. This is done so pus is not sealed inside by premature closure of the cavity. The packing will be removed at your follow-up visit or you may be advised to remove it yourself at home. Sometimes this packing must be replaced a few times during healing. The wound will heal with surprisingly little scar. Depending on the size and location of an abscess, healing can take one to four weeks. You may shower and wash the area around the incision site two or three times a day. Antibiotics may be prescribed, but are usually not necessary after an abscess has been drained. If you develop fever, chills, worsening pain, or increasing swelling in the area, call the doctor or return immediately. POST INCISION AND DRAINAGE: You have had an incision made to allow drainage of an abscess. The incision must remain open so that pus and debris can drain from the wound. If the abscess cavity is large, packing is placed. This keeps the tissues from collapsing and trapping pus inside, while the body shrinks the cavity. The packing may need to be replaced every day or two. The physician will instruct you on the packing. Keep a bulky dressing over the area. Replace it if it becomes saturated with blood or pus. Do not disturb the packing (if present). You may shower and cleanse the area with gentle soap and warm water two or three times a day. Local warmth may be soothing, and may promote faster healing. Return if you develop high fever or chills, or if you note spreading redness, increasing swelling, or increasing tenderness. MRSA CELLULITIS: You have an infection of your skin and underlying soft tissues called cellulitis. This is due to bacteria, which can enter through any break in the skin, or even through an irritated hair follicle. Untreated, cellulitis will usually worsen and may form an abscess which requires draining. Although many bacterial organisms can cause cellulitis and abscess formations, the most likely bacteria is Methicillin-Resistant Staph Aureus, or MRSA for short. Antibiotics are required. Usually, warm packs or warm soaks, and elevation of the infected area are recommended. You should start getting better within 24 to 36 hours. Most infections respond quickly to the right medication. Follow-up care is important, however, to check for abscess (boil) formation, unsuspected foreign body, or resistant infection. If you develop fever, chills, or if the area of infection is becoming rapidly more swollen or painful, call the doctor at once. ORAL NARCOTIC MEDICATION: You have been given a prescription for pain control. This medication is a narcotic. It's best taken with food, as nausea can result if taken on an empty stomach. Don't operate machinery or drive within six hours of taking this medication. Do not combine this medicine with alcohol, or with any medication which can cause sedation (such as cold tablets or sleeping pills) unless you get permission from the physician. Narcotics tend to cause constipation. If possible, drink plenty of fluids and eat a diet high in fiber and fruits. CEPHALEXIN: The antibiotic you've been prescribed is a member of the cephalosporin class. This type of antibiotic covers a wide variety of infections, including those of the skin, lungs, and urinary tract. It's useful for staph infections. This antibiotic is slightly similar to the penicillin family. In rare cases, a person who is allergic to penicillin will also be allergic to this medication. If you have had a severe allergic reaction to penicillin, and have not taken this antibiotic since that time, notify your doctor. Antibiotics which cover many germs ("broad spectrum" antibiotics) are more likely to cause diarrhea or "yeast" infections. Women prone to vaginal yeast problems may suffer an attack after taking this antibiotic. In infants, oral thrush (white spots "stuck" on the cheek) or yeast diaper rash may result. See your doctor if these problems occur. Call at once if you develop itching, hives, shortness of breath, or lightheadedness. TRIMETHOPRIM-SULFA: You have been given a prescription for trimethoprim-sulfa (TMS, Septra, Bactrim). This is a combination antibiotic of the sulfa class, often used for urinary tract infections, middle ear infections, bronchitis, shigella intestinal infection, and Pneumocystis pneumonia. TMS is usually well-tolerated. Occasional side effects include nausea and decreased appetite. Septra is not recommended for infants less than two months of age. Do not take this medication if you have experienced severe side effects or allergy to sulfa medicine. You should stop this medicine at once and contact your physician if you develop any rash, joint pain, shortness of breath, bruising, or jaundice (yellow color in the skin), or if you develop any other new or unusual symptoms. FOLLOW-UP CARE: Most simple abscesses will not require a follow up visit. If you had packing placed in the abscess, remove it as instructed by the physician. If you have been referred to a physician for follow-up care, call the physicians office for an appointment as you were instructed or within the next two days. If you experience worsening or a significant change in your symptoms, return to the Emergency Department at any time for re-evaluation. Please return to the emergency department on Tuesday after 2 PM for packing removal and wound recheck. Return to the emergency department sooner if you experience worsening symptoms to include worsening pain to the area, you develop a fever or any other symptom that is concerning to you. Please take all medications exactly as prescribed. Apply warm compresses to the area 3-4 times daily. Please have your assisted living facility consider having a wound recheck daily. Prescriptions: Cephalexin [Cephalexin 500 MG Tablet] 1 tab PO QID #28 tablet Hydrocodone/Acetaminophen [Parmele 5-325 mg Tablet] 1 tab PO Q4H #10 tablet Sulfamethoxazole/Trimethoprim [Bactrim Ds Tablet] 2 each PO BID #28 tablet Referrals: LUISITO MAK MD [Primary Care Provider] - Follow up as needed
[2018-08-30] MEDS ORDERED: LIDOCAINE 1% INJ-PF (10 MG/ML) 30 ML SDV ONE (21:27)
[2018-08-30] MEDS ORDERED: HYDROCODONE/ACETAMINOPHEN 5-325 MG (6 TAB/ER DISP) PO PRN (21:42)
[2018-08-30 22:24] VITALS: BP 139/70
== END 2018-08-30 21:55 | disposition home or self-care (01) ==
LOC: ER 16:11
DX: L03.116 Cellulitis of left lower limb (principal); I48.91 Unspecified atrial fibrillation; I50.9 Heart failure, unspecified; E78.00 Pure hypercholesterolemia, unspecified; I11.0 Hypertensive heart disease with heart failure; E11.9 Type 2 diabetes mellitus without complications; Z95.1 Presence of aortocoronary bypass graft
CPT/HCPCS: 99283; 10060; A6266; A9270 ×4

== ENCOUNTER 2018-09-01 15:05 | Emergency (ER) | payer MEDICARE ==
[2018-09-01 15:12] VITALS: BP 117/65
[2018-09-01] MEDS ORDERED: LIDOCAINE 1% INJ-PF (10 MG/ML) 30 ML SDV INJ ONE (15:48)
--- NOTE | 2018-09-01 16:22 | ER Document Report ---
HPI - HPI Time Seen by Provider: 09/01/18 15:38 Pain Level: 4 Notes: Patient is a 73-year-old male who presents to the emergency department for wound recheck and packing removal. Patient was seen here 2 days ago and had an abscess incised and drained to his left thigh. He denies any new symptoms, denies fever, states that he is feeling much better and the pain has improved. Patient reports that he has not had the opportunity to change his dressing since he left the emergency department. - DERM Skin Color: Normal Past Medical History - General Information source: Patient, Relative - Daughter - Social History Smoking Status: Never Smoker Chew tobacco use (# tins/day): No Frequency of alcohol use: Rare Drug Abuse: None Family History: Hypertension Patient has suicidal ideation: No Patient has homicidal ideation: No - Past Medical History Cardiac Medical History: Reports: Hx Atrial Fibrillation, Hx Congestive Heart Failure, Hx Hypercholesterolemia, Hx Hypertension Pulmonary Medical History: Reports: Hx COPD Endocrine Medical History: Reports: Hx Diabetes Mellitus Type 2 Renal/ Medical History: Denies: Hx Peritoneal Dialysis Psychiatric Medical History: Reports: Hx Depression Past Surgical History: Reports: Hx Coronary Artery Bypass Graft, Hx Orthopedic Surgery Vertical Provider Document - CONSTITUTIONAL Notes: PHYSICAL EXAMINATION: GENERAL: Well-appearing, well-nourished and in no acute distress. HEAD: Atraumatic, normocephalic. EYES: Pupils equal round extraocular movements intact, conjunctiva are normal. ENT: Nares patent NECK: Normal range of motion LUNGS: No respiratory distress Musculoskeletal: Normal range of motion NEUROLOGICAL: Normal speech, normal gait. PSYCH: Normal mood, normal affect. SKIN: Area of erythema noted to left thigh, no induration or fluctuance. Open area with packing in place. - INFECTION CONTROL TRAVEL OUTSIDE OF THE [place] IN LAST 30 DAYS: No Course - Re-evaluation Re-evalutation: Patient reports has been taking all antibiotics as prescribed. Patient's abscess has packing in place. Area of erythema and induration appears to be much improved from his visit 2 days ago as I was the provider that saw him that day. Packing removed during this visit. Directions given to patient's daughter including the importance of changing the dressing at least twice daily. Packing was replaced today and daughter given instructions on how to remove the packing in 2 days. - Vital Signs Vital signs: Temp Pulse Resp BP Pulse Ox 98.6 F 65 20 117/65 96 09/01/18 15:09 09/01/18 15:09 09/01/18 15:09 09/01/18 15:09 09/01/18 15:09 Discharge - Discharge Clinical Impression: Abscess re-check, wound Packing replacement Condition: Stable Disposition: HOME, SELF-CARE Additional Instructions: The packing to your wound was replaced today. I irrigated the area with Shur- Clens and saline. It is very important for dressing changes to occur at least twice daily. The wound was repacked today and the packing needs to be removed on 09/03/2018. Orders for staff at living facility, the [facility]: 1. The patient was given a prescription for hydrocodone during his last visit on 08/30/2018, this medication needs to be filled to so that patient may have adequate pain control. You may take 1 tablet every 4 hours as directed on the prescription. 2. Continue taking antibiotics as prescribed, finish the entire course of antibiotics even if all symptoms resolved. 3. Dressing needs to be changed at least twice daily, the patient was sent home with all dressing supplies. Apply gauze to the area and secure with tape. 4. The wound was marked with a surgical marker. If the redness extends past the borders by 2 cm or more in any direction please have the patient to return to the emergency department. 5. Packing needs to be removed in 48 hours which will be approximately 4 PM on 09/03/2018. 6. Please have patient return to the emergency department if he develops worsening pain or fever. Referrals: LUISITO MAK MD [Primary Care Provider] - Follow up as needed
== END 2018-09-01 16:18 | disposition home or self-care (01) ==
LOC: ER 15:05
DX: Z48.01 Encounter for change or removal of surgical wound dressing (principal); L02.416 Cutaneous abscess of left lower limb; E11.9 Type 2 diabetes mellitus without complications; I10 Essential (primary) hypertension; J44.9 Chronic obstructive pulmonary disease, unspecified; Z95.1 Presence of aortocoronary bypass graft
CPT/HCPCS: 99282; A6266